=== PATIENT | female | born 1990 | race African-American/Black ===

== ENCOUNTER 2020-07-22 11:47 | Emergency (ER) | payer SELFPAY ==
--- NOTE | 2020-07-22 16:26 | ER ---
Nurse's Notes [facility] Name: Marimar Eid Age: 30 yrs Sex: Female : 1990 Arrival Date: 07/22/2020 Time: 11:50 Bed External Waiting Private MD: Diagnosis: Presentation: 07/22 11:57 Chief complaint: Patient states: Heavy vaginal bleeding that began <1 hour ago. LMP ss 06/27/20. Coronavirus screen: Client denies travel out of the [place] in the last 14 days. Ebola Screen: Patient denies exposure to infectious person. Patient denies travel to an Ebola-affected area in the 21 days before illness onset. Initial Sepsis Screen: Does the patient meet any 2 criteria? No. Patient's initial sepsis screen is negative. Does the patient have a suspected source of infection? No. Patient's initial sepsis screen is negative. Risk Assessment: Do you want to hurt yourself or someone else? Patient reports no desire to harm self or others. Onset of symptoms was July 22, 2020. 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 - Social history:: Smoking status: Patient reports the use of cigarette tobacco products, smokes one-half pack cigarettes per day. Assessment: 16:25 Reassessment: registration reports that patient left. Unknown reason. Vital Signs: 12:00 BP 115 / 74; Pulse 99; Resp 14; Temp 98.5(TE); Pulse Ox 99% on R/A; Weight 63.05 kg; ss Height 5 ft. 0 in. (152.40 cm); Pain 6/10; 12:00 Body Mass Index 27.15 (63.05 kg, 152.40 cm) ED Course: 11:50 Patient arrived in ED. ds1 11:58 Triage completed. ss 12:00 Arm band placed on right wrist. ss 15:43 Page, Camacho, PA is PHCP. cp 15:43 Camacho Walton MD is Attending Physician. cp 15:44 Nataly Momin, RN is Primary Nurse. ph Administered Medications: No medications were administered Outcome: 16:26 Eloped from waiting room. ss 16:26 Patient left the ED. ss Signatures: EnriquezDesire ds1 Georgiana Soni RN RN Nataly Momin RN RN Camacho Crockett PA PA cp Corrections: (The following items were deleted from the chart) 12:00 12:00 Social history: Smoking status: Patient denies any tobacco usage or history of. ssss
[2020-07-22 16:31] VITALS: BP 115/74; TEMP 98.5; O2SAT 99
== END 2020-07-22 16:26 | disposition left against medical advice (07) ==
LOC: ER 11:47
DX: Z02.9 Encounter for administrative examinations, unspecified (principal)
CPT/HCPCS: 99281

== ENCOUNTER 2020-11-10 23:00 | Emergency (ER) | payer OTHER, SELFPAY ==
[2020-11-10] MEDS ORDERED: HYDROCODONE/APAP 7.5/325 MG TAB ONE (23:51)
--- NOTE | 2020-11-11 00:07 | ER ---
Nurse's Notes [facility] Name: Marimar Eid Age: 30 yrs Sex: Female : 1990 Arrival Date: 11/10/2020 Time: 23:03 Bed 12 Private MD: Diagnosis: Sprain right shoulder Presentation: 11/10 23:09 Chief complaint: Patient states: we were horse playing and my right arm pop then it rr5 started to hurt. palpable pulse good capillary refill, limited range of motion noted. Coronavirus screen: Client denies travel out of the [place] in the last 14 days. At this time, the client does not indicate any symptoms associated with coronavirus-19. Ebola Screen: Patient negative for fever greater than or equal to 101.5 degrees Fahrenheit, and additional compatible Ebola Virus Disease symptoms Patient denies exposure to infectious person. Patient denies travel to an Ebola-affected area in the 21 days before illness onset. Initial Sepsis Screen: Does the patient meet any 2 criteria? No. Patient's initial sepsis screen is negative. Does the patient have a suspected source of infection? No. Patient's initial sepsis screen is negative. Risk Assessment: Do you want to hurt yourself or someone else? Patient reports no desire to harm self or others. Onset of symptoms was November 10, 2020. 23:09 Method Of Arrival: Ambulatory rr5 23:09 Acuity: RAMIRO 4 rr5 Triage Assessment: 11/11 00:15 Injury Description:. 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 - Social history:: Smoking status: Patient reports the use of cigarette tobacco products, 8 sticks/day, Patient/guardian denies using alcohol, street drugs. Screenin:15 Abuse screen: Denies threats or abuse. Denies injuries from another. Nutritional rr5 screening: No deficits noted. Tuberculosis screening: No symptoms or risk factors identified. Fall Risk None identified. Total Stephens Fall Scale indicates No Risk (0-24 pts). Assessment: 23:16 General: Appears in no apparent distress. uncomfortable, Behavior is calm, cooperative, rr5 appropriate for age. Pain: Complains of pain in right arm Pain currently is 6 out of 10 on a pain scale. Quality of pain is described as aching, Pain began suddenly, Is intermittent. Neuro: Level of Consciousness is awake, alert, obeys commands, Oriented to person, place, time. Cardiovascular: Capillary refill < 3 seconds Patient's skin is warm and dry. Respiratory: Airway is patent Respiratory effort is even, unlabored, Respiratory pattern is regular, symmetrical. GI: No signs and/or symptoms were reported involving the gastrointestinal system. : No signs and/or symptoms were reported regarding the genitourinary system. EENT: No signs and/or symptoms were reported regarding the EENT system. Derm: Skin is intact, is healthy with good turgor, Skin temperature is warm. Musculoskeletal: Capillary refill < 3 seconds, Reports pain in right arm. 11/11 00:14 Reassessment: Patient appears in no apparent distress at this time. Patient is alert, rr5 oriented x 3, equal unlabored respirations, skin warm/dry/pink. discharge instruction given and explained without complaints made. Vital Signs: 11/10 23:09 BP 110 / 83; Pulse 91; Resp 16; Temp 98.9; Pulse Ox 100% ; Weight 64.86 kg; Height 5 rr5 ft. 2 in. (157.48 cm); Pain 6/10; 11/11 00:14 BP 115 / 70; Pulse 85; Resp 19; Pulse Ox 98% ; rr5 11/10 23:09 Body Mass Index 26.15 (64.86 kg, 157.48 cm) rr5 ED Course: 11/10 23:03 Patient arrived in ED. cf2 23:06 Harsh Olea MD is Attending Physician. pkl 23:09 Scott Rothman, OMID is Primary Nurse. rr5 23:11 Triage completed. rr5 23:13 Arm band placed on right wrist. rr5 23:16 Patient has correct armband on for positive identification. Bed in low position. Call rr5 light in reach. 23:39 No provider procedures requiring assistance completed. Patient did not have IV access rr5 during this emergency room visit. 23:48 Humerus Right XRAY In Process Unspecified. EDMS 11/11 00:05 Shamir Shah MD is Referral Physician. pkl 00:14 Shoulder immobilizer applied on right shoulder. rr5 Administered Medications: 11/10 23:35 Drug: [place] (HYDROcodone-acetaminophen) (7.5 mg-325 mg) 1 tabs {Note: rass 0.} Route: rr5 PO; 11/11 00:19 Follow up: Response: No adverse reaction; RASS: Alert and Calm (0) rr5 Outcome: 00:06 Discharge ordered by MD. pkl 00:15 Discharged to home ambulatory. rr5 00:15 Condition: stable 00:15 Discharge instructions given to patient, Instructed on discharge instructions, follow up and referral plans. medication usage, Demonstrated understanding of instructions, follow-up care, medications, Prescriptions given X 1. 00:18 Patient left the ED. rr5 Signatures: Dispatcher [employer] EDMS Harsh Olea MD MD pkl Scott Rothman RN RN rr5 Mg Calle cf2 Corrections: (The following items were deleted from the chart) 11/10 23:18 23:09 Chief complaint: Patient states: I was horse playing and my right arm pop then it rr5 started to hurt. palpable pulse good capillary refill, limited range of motion noted rr5
--- NOTE | 2020-11-11 00:08 | EDPHYS ---
Physician Documentation [facility] Name: Marimar Eid Age: 30 yrs Sex: Female : 1990 Arrival Date: 11/10/2020 Time: 23:03 Bed 12 Private MD: ED Physician Harsh Olea HPI: 11/10 23:26 This 30 yrs old Black Female presents to ER via Ambulatory with complaints of Arm pkl Injury, Arm Pain. 23:26 The patient or guardian complains of decreased range of motion, injury, pain, that is pkl acute. The complaints affect the right arm. Context: resulted from twisting motion of the upper extremity. Onset: The symptoms/episode began/occurred just prior to arrival. Associated signs and symptoms: The patient has no apparent associated signs or symptoms. 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 - Social history:: Smoking status: Patient reports the use of cigarette tobacco products, 8 sticks/day, Patient/guardian denies using alcohol, street drugs. ROS: 23:26 Eyes: Negative for injury, pain, redness, and discharge, ENT: Negative for injury, pkl pain, and discharge, Neck: Negative for injury, pain, and swelling, Cardiovascular: Negative for chest pain, palpitations, and edema, Respiratory: Negative for shortness of breath, cough, wheezing, and pleuritic chest pain, Abdomen/GI: Negative for abdominal pain, nausea, vomiting, diarrhea, and constipation, Back: Negative for injury and pain, : Negative for injury, bleeding, discharge, and swelling, Skin: Negative for injury, rash, and discoloration, Neuro: Negative for headache, weakness, numbness, tingling, and seizure. 23:26 MS/extremity: Positive for decreased range of motion, pain, tenderness, of the right arm. Exam: 23:26 Head/Face: Normocephalic, atraumatic. Eyes: Pupils equal round and reactive to light, pkl extra-ocular motions intact. Lids and lashes normal. Conjunctiva and sclera are non-icteric and not injected. Cornea within normal limits. Periorbital areas with no swelling, redness, or edema. ENT: Nares patent. No nasal discharge, no septal abnormalities noted. Tympanic membranes are normal and external auditory canals are clear. Oropharynx with no redness, swelling, or masses, exudates, or evidence of obstruction, uvula midline. Mucous membranes moist. Neck: Trachea midline, no thyromegaly or masses palpated, and no cervical lymphadenopathy. Supple, full range of motion without nuchal rigidity, or vertebral point tenderness. No Meningismus. Chest/axilla: Normal chest wall appearance and motion. Nontender with no deformity. No lesions are appreciated. Cardiovascular: Regular rate and rhythm with a normal S1 and S2. No gallops, murmurs, or rubs. Normal PMI, no JVD. No pulse deficits. Respiratory: Lungs have equal breath sounds bilaterally, clear to auscultation and percussion. No rales, rhonchi or wheezes noted. No increased work of breathing, no retractions or nasal flaring. Abdomen/GI: Soft, non-tender, with normal bowel sounds. No distension or tympany. No guarding or rebound. No evidence of tenderness throughout. Back: No spinal tenderness. No costovertebral tenderness. Full range of motion. Skin: Warm, dry with normal turgor. Normal color with no rashes, no lesions, and no evidence of cellulitis. Neuro: Awake and alert, GCS 15, oriented to person, place, time, and situation. Cranial nerves II-XII grossly intact. Motor strength 5/5 in all extremities. Sensory grossly intact. Cerebellar exam normal. Normal gait. 23:26 Musculoskeletal/extremity: Extremities: grossly normal except: noted in the right arm: pain, swelling, decreased ROM, tenderness. Vital Signs: 23:09 BP 110 / 83; Pulse 91; Resp 16; Temp 98.9; Pulse Ox 100% ; Weight 64.86 kg; Height 5 rr5 ft. 2 in. (157.48 cm); Pain 6/10; 11/11 00:14 BP 115 / 70; Pulse 85; Resp 19; Pulse Ox 98% ; rr5 11/10 23:09 Body Mass Index 26.15 (64.86 kg, 157.48 cm) rr5 MDM: 11/10 23:07 Patient medically screened. pkl 11/11 00:01 Data reviewed: vital signs, nurses notes, radiologic studies, plain films. ED course: pkl Discussed X' rays result with patient. Advised to follow up with Dr. Shah in 1 to 2 days. Patient understood instructions. 11/10 23:24 Order name: Humerus Right XRAY pkl 11/11 00:08 Order name: Sling; Complete Time: 00:13 pkl Administered Medications: 11/10 23:35 Drug: [place] (HYDROcodone-acetaminophen) (7.5 mg-325 mg) 1 tabs {Note: rass 0.} Route: rr5 PO; 11/11 00:19 Follow up: Response: No adverse reaction; RASS: Alert and Calm (0) rr5 Disposition: 11/11/20 00:06 Discharged to Home. Impression: Sprain right shoulder. - Condition is Stable. - Prescriptions for Diclofenac Sodium 75 mg Oral Tablet, Delayed Release (E.C.) - take 1 tablet by ORAL route 2 times per day; 20 tablet. - Medication Reconciliation Form, Thank You Letter, Antibiotic Education, Prescription Opioid Use, Work release form form. - Follow up: Shamir Shah MD; When: 1 - 2 days; Reason: Re-evaluation by your physician. - Problem is new. - Symptoms are unchanged. Signatures: Dispatcher [employer] EDMS Harsh Olea MD MD pkScott Pierce RN RN rr5 Corrections: (The following items were deleted from the chart) 00:18 00:06 11/11/2020 00:06 Discharged to Home. Impression: Sprain right shoulder. Condition rr5 is Stable. Forms are Medication Reconciliation Form, Thank You Letter, Antibiotic Education, Prescription Opioid Use. Follow up: Shamir Shah; When: 1 - 2 days; Reason: Re-evaluation by your physician. Problem is new. Symptoms are unchanged. pkl
[2020-11-11 00:59] VITALS: TEMP 98.9
[2020-11-11 01:01] VITALS: BP 115/70; O2SAT 98
--- NOTE | 2020-11-11 08:20 | RAD REPORT ---
EXAM DESCRIPTION: RAD - Humerus Right - 11/10/2020 11:48 pm CLINICAL HISTORY: PAIN, trauma to the arm and shoulder COMPARISON: No comparisons FINDINGS: No fracture is identified. There is no dislocation or periosteal reaction noted. No foreig n body or other soft tissue abnormality. IMPRESSION: Negative right humerus examination.
== END 2020-11-11 00:18 | disposition home or self-care (01) ==
LOC: ER 23:00
DX: S43.401A Unspecified sprain of right shoulder joint, initial encounter (principal); X50.1XXA Overexertion from prolonged static or awkward postures, initial encounter; F17.210 Nicotine dependence, cigarettes, uncomplicated
CPT/HCPCS: 99284

== ENCOUNTER 2021-01-27 13:33 | Emergency (ER) | payer OTHER ==
[2021-01-27] MEDS ORDERED: ACETAMINOPHEN 325 MG TABLET ONE (15:11)
--- NOTE | 2021-01-27 16:44 | ER ---
Nurse's Notes [facility] Name: Marimar Eid Age: 30 yrs Sex: Female : 1990 Arrival Date: 01/27/2021 Time: 13:37 Bed DIS2 Private MD: Diagnosis: Acute upper respiratory infection, unspecified;Fever, unspecified Presentation: 01/27 14:34 Chief complaint: Patient states: dizziness, cough, sore throat, headache, and SOB that aa5 began yesterday. 14:34 Method Of Arrival: Ambulatory aa5 14:34 Coronavirus screen: cough unrelated to allergies, shortness of breath. Ebola Screen: aa5 Patient negative for fever greater than or equal to 101.5 degrees Fahrenheit, and additional compatible Ebola Virus Disease symptoms. Initial Sepsis Screen: Does the patient meet any 2 criteria? HR > 90 bpm. Does the patient have a suspected source of infection? No. Patient's initial sepsis screen is negative. Risk Assessment: Do you want to hurt yourself or someone else? Patient reports no desire to harm self or others. Onset of symptoms was January 2021. 14:34 Acuity: RAMIRO 4 aa5 Triage Assessment: 16:30 General: Appears in no apparent distress. Behavior is calm, cooperative. Respiratory: iw Reports cough that is Onset: The symptoms/episode began/occurred the patient has mild shortness of breath. 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 Flu vaccine is not up to date. - Social history:: Smoking status: Patient denies any tobacco usage or history of. - Family history:: not pertinent. Screenin:00 Abuse screen: Denies threats or abuse. Denies injuries from another. Nutritional iw screening: No deficits noted. Tuberculosis screening: No symptoms or risk factors identified. Fall Risk None identified. Assessment: 16:30 General: Appears in no apparent distress. comfortable, Behavior is calm, cooperative. iw Pain: Denies pain. Cardiovascular: Rhythm is regular. Respiratory: Airway is patent Respiratory effort is even, unlabored, Breath sounds are clear bilaterally. Vital Signs: 14:34 BP 109 / 63; Pulse 107; Resp 18 S; Temp 99.3(TE); Pulse Ox 100% on R/A; Weight 63.5 kg aa5 (R); Height 5 ft. 0 in. (152.40 cm) (R); Pain 8/10; 14:34 Body Mass Index 27.34 (63.50 kg, 152.40 cm) aa5 ED Course: 13:37 Patient arrived in ED. mr 14:35 Arm band placed on. aa5 14:38 Triage completed. aa5 15:45 Camacho Walton MD is Attending Physician. [facility] 16:55 Jillian Perez, RN is Primary Nurse. iw 16:55 No provider procedures requiring assistance completed. Patient did not have IV access iw during this emergency room visit. Administered Medications: 14:50 Drug: Tylenol 650 mg Route: PO; aa5 15:00 Follow up: Response: No adverse reaction iw 16:55 Drug: Zithromax (azithromycin) 500 mg Route: PO; iw 17:15 Follow up: Response: No adverse reaction iw Outcome: 16:43 Discharge ordered by . [facility] 16:45 Discharged to home ambulatory. iw 16:45 Condition: good 16:45 Discharge instructions given to patient, Instructed on discharge instructions, follow up and referral plans. Demonstrated understanding of instructions, follow-up care, medications. 16:55 Patient left the ED. iw Signatures: Camacho Walton MD MD cha Rivera, Mary mr Jillian Perez, RN OMID Janay Wells RN RN [facility]
--- NOTE | 2021-01-27 16:44 | EDPHYS ---
Physician Documentation [facility] Name: Marimar Eid Age: 30 yrs Sex: Female : 1990 Arrival Date: 01/27/2021 Time: 13:37 Bed DIS2 Private MD: MAYRA Physician Camacho Walton HPI: 01/27 16:06 This 30 yrs old Black Female presents to ER via Ambulatory with complaints of Shortness santosh Of Breath, Dizziness. 16:06 The patient has shortness of breath at rest, with light activity. Onset: The santosh symptoms/episode began/occurred 3 day(s) ago. Duration: The symptoms are continuous, and are unchanged since they started. The patient's shortness of breath is aggravated by coughing. Associated signs and symptoms: The patient has no apparent associated signs or symptoms. Severity of symptoms: At their worst the symptoms were mild just prior to arrival. The patient has not experienced similar symptoms in the past. 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 Flu vaccine is not up to date. - Social history:: Smoking status: Patient denies any tobacco usage or history of. - Family history:: not pertinent. ROS: 16:06 Constitutional: Negative for fever, chills, and weight loss, Eyes: Negative for injury, santosh pain, redness, and discharge, ENT: Negative for injury, pain, and discharge, Neck: Negative for injury, pain, and swelling, Cardiovascular: Negative for chest pain, palpitations, and edema, Abdomen/GI: Negative for abdominal pain, nausea, vomiting, diarrhea, and constipation, Back: Negative for injury and pain, : Negative for injury, bleeding, discharge, and swelling, MS/Extremity: Negative for injury and deformity, Skin: Negative for injury, rash, and discoloration, Neuro: Negative for headache, weakness, numbness, tingling, and seizure, Psych: Negative for depression, anxiety, suicide ideation, homicidal ideation, and hallucinations, Allergy/Immunology: Negative for hives, rash, and allergies, Endocrine: Negative for neck swelling, polydipsia, polyuria, polyphagia, and marked weight changes, Hematologic/Lymphatic: Negative for swollen nodes, abnormal bleeding, and unusual bruising. 16:06 Respiratory: Positive for cough, with no reported sputum, shortness of breath, at rest. Exam: 16:06 Constitutional: This is a well developed, well nourished patient who is awake, alert, santosh and in no acute distress. Head/Face: Normocephalic, atraumatic. Eyes: Pupils equal round and reactive to light, extra-ocular motions intact. Lids and lashes normal. Conjunctiva and sclera are non-icteric and not injected. Cornea within normal limits. Periorbital areas with no swelling, redness, or edema. ENT: Nares patent. No nasal discharge, no septal abnormalities noted. Tympanic membranes are normal and external auditory canals are clear. Oropharynx with no redness, swelling, or masses, exudates, or evidence of obstruction, uvula midline. Mucous membranes moist. Neck: Trachea midline, no thyromegaly or masses palpated, and no cervical lymphadenopathy. Supple, full range of motion without nuchal rigidity, or vertebral point tenderness. No Meningismus. Chest/axilla: Normal chest wall appearance and motion. Nontender with no deformity. No lesions are appreciated. Cardiovascular: Regular rate and rhythm with a normal S1 and S2. No gallops, murmurs, or rubs. Normal PMI, no JVD. No pulse deficits. Respiratory: Lungs have equal breath sounds bilaterally, clear to auscultation and percussion. No rales, rhonchi or wheezes noted. No increased work of breathing, no retractions or nasal flaring. Abdomen/GI: Soft, non-tender, with normal bowel sounds. No distension or tympany. No guarding or rebound. No evidence of tenderness throughout. Back: No spinal tenderness. No costovertebral tenderness. Full range of motion. Skin: Warm, dry with normal turgor. Normal color with no rashes, no lesions, and no evidence of cellulitis. MS/ Extremity: Pulses equal, no cyanosis. Neurovascular intact. Full, normal range of motion. Neuro: Awake and alert, GCS 15, oriented to person, place, time, and situation. Cranial nerves II-XII grossly intact. Motor strength 5/5 in all extremities. Sensory grossly intact. Cerebellar exam normal. Normal gait. Psych: Awake, alert, with orientation to person, place and time. Behavior, mood, and affect are within normal limits. 16:06 Musculoskeletal/extremity: DVT Exam: No signs of deep vein thrombosis. no pain, no swelling, no tenderness, negative Homans' sign noted on exam, no appreciated bluish discoloration, no erythema, no increased warmth. Vital Signs: 14:34 BP 109 / 63; Pulse 107; Resp 18 S; Temp 99.3(TE); Pulse Ox 100% on R/A; Weight 63.5 kg aa5 (R); Height 5 ft. 0 in. (152.40 cm) (R); Pain 8/10; 14:34 Body Mass Index 27.34 (63.50 kg, 152.40 cm) aa5 MDM: 15:45 Patient medically screened. [facility] 16:08 Data reviewed: vital signs, nurses notes, lab test result(s), Flu: negative. [facility] 01/27 14:39 Order name: Flu; Complete Time: 16:43 aa5 01/27 14:39 Order name: Strep; Complete Time: 16:43 aa5 01/27 16:20 Order name: Throat Culture EDMS 01/27 16:35 Order name: SARS-COV-2 RT PCR; Complete Time: 16:43 EDMS Administered Medications: 14:50 Drug: Tylenol 650 mg Route: PO; aa5 15:00 Follow up: Response: No adverse reaction iw 16:55 Drug: Zithromax (azithromycin) 500 mg Route: PO; iw 17:15 Follow up: Response: No adverse reaction iw Disposition Summary: 01/27/21 16:43 Discharge Ordered Location: Home santosh Problem: new santosh Symptoms: have improved santosh Condition: Stable santosh Diagnosis - Acute upper respiratory infection, unspecified santosh - Fever, unspecified santosh Followup: santosh - With: Private Physician - When: 2 - 3 days - Reason: Recheck today's complaints, Continuance of care, Re-evaluation by your physician Discharge Instructions: - Discharge Summary Sheet santosh - Fever, Adult santosh - Upper Respiratory Infection, Adult santosh - Cool Mist Vaporizer santosh - Upper Respiratory Infection, Adult, [id number] santosh - Cough, Adult, [id number] santosh - Viral Respiratory Infection, [id number] santosh - Aspirin and Your Heart santosh - Fever, Adult, [id number] [facility] Forms: - Medication Reconciliation Form santosh - Thank You Letter santosh - Antibiotic Education santosh - Prescription Opioid Use [facility] Prescriptions: - Zithromax Z-Leighton 250 mg Oral Tablet - take 1 tablet by ORAL route as directed for 5 days Day 1 - take two (2) tablets santosh one time. Day 2, 3, 4 , 5 take one (1) tablet once daily.; 6 tablet; Refills: 0, Product Selection Permitted - Medrol (Leighton) 4 mg Oral Tablets, Dose Pack - take 1 tablet by ORAL route as directed - follow package instructions; 1 santosh packet; Refills: 0, Product Selection Permitted Signatures: Dispatcher [employer] EDCamacho Monsivais MD MD cha Williams, Irene, RN RN iw Calderon, Audri, RN RN aa5 Corrections: (The following items were deleted from the chart) 15:42 14:39 CORONAVIRUS+BRZ ordered. EDID EDMS
[2021-01-27 17:00] VITALS: BP 109/63; TEMP 99.3; O2SAT 100
[2021-01-27] MEDS ORDERED: AZITHROMYCIN 250 MG TAB ONE (17:14)
== END 2021-01-27 16:55 | disposition home or self-care (01) ==
LOC: ER 13:33
DX: J06.9 Acute upper respiratory infection, unspecified (principal); Z20.822 Contact with and (suspected) exposure to COVID-19; I10 Essential (primary) hypertension
CPT/HCPCS: 87070; 87081; 87804 ×2; U0003; 99283

== ENCOUNTER 2021-02-03 17:05 | Emergency (ER) | payer OTHER ==
--- NOTE | 2021-02-03 20:08 | ER ---
Nurse's Notes [facility] Name: Marimra Eid Age: 30 yrs Sex: Female : 1990 Arrival Date: 02/03/2021 Time: 18:02 Bed DIS1 Private MD: Diagnosis: SARS-associated coronavirus as the cause of diseases classified elsewhere Presentation: 02/03 19:22 Chief complaint: Patient states: Pt stated, " I was just here on 01/26 and was swabbed kg for COVID and it was negative they diagnosed me with URI but now I can't taste or smell anything and I'm having sharp chest pain when I breath.". Coronavirus screen: Client denies travel out of the [place] in the last 14 days. At this time, unable to obtain information related to travel outside the [place] Client presents with at least one sign or symptom that may indicate coronavirus-19. Standard/surgical mask placed on the client. Provider contacted for isolation considerations. The client reports previous COVID testing was negative. Date of collection: January 26, 2021. Ebola Screen: Patient negative for fever greater than or equal to 101.5 degrees Fahrenheit, and additional compatible Ebola Virus Disease symptoms Patient denies exposure to infectious person. Patient denies travel to an Ebola-affected area in the 21 days before illness onset. No symptoms or risks identified at this time. Initial Sepsis Screen: Does the patient meet any 2 criteria? No. Patient's initial sepsis screen is negative. Does the patient have a suspected source of infection? No. Patient's initial sepsis screen is negative. Risk Assessment: Do you want to hurt yourself or someone else? Patient reports no desire to harm self or others. Onset of symptoms was February 02, 2021. 19:22 Method Of Arrival: Ambulatory kg 19:22 Acuity: RAMIRO 4 kg Triage Assessment: 19:27 General: Appears in no apparent distress. Behavior is calm, cooperative, appropriate kg for age, quiet. Pain: Complains of pain in chest Pain currently is 6 out of 10 on a pain scale. at worst was 6 out of 10 on a pain scale. level that patient reports is acceptable is 3 out of 10 on a pain scale. Quality of pain is described as sharp. 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 - Social history:: Smoking status: Patient denies any tobacco usage or history of. Screenin:29 Abuse screen: Denies threats or abuse. Denies injuries from another. Nutritional kg screening: No deficits noted. Tuberculosis screening: No symptoms or risk factors identified. Fall Risk None identified. Assessment: 20:17 Reassessment: pt seen by this RN at discharge pt is A\\T\\O x 4, resp unlabored pt bb verbalized understanding of and agrees to plan of care discharge instructions given pt ambulated with steady gait to exit. Vital Signs: 19:22 BP 112 / 77; Pulse 96; Resp 20; Temp 98.7(O); Pulse Ox 100% on R/A; Weight 63.5 kg; kg Height 5 ft. 0 in. (152.40 cm) (R); Pain 7/10; 19:22 Body Mass Index 27.34 (63.50 kg, 152.40 cm) kg ED Course: 18:02 Patient arrived in ED. ds1 19:27 Triage completed. kg 19:27 Arm band placed on right wrist. kg 19:29 Patient has correct armband on for positive identification. kg 19:29 No provider procedures requiring assistance completed. kg 19:44 XRAY Chest Pa And Lat (2 Views) In Process Unspecified. MAYRAPR 19:56 Camacho Walton MD is Attending Physician. [facility] 19:56 Brody Manning PA is PHCP. jrEmily 20:17 Patient did not have IV access during this emergency room visit. bb Administered Medications: No medications were administered Outcome: 20:07 Discharge ordered by . jrEmily 20:17 Discharged to home ambulatory. bb 20:17 Condition: stable 20:17 Discharge instructions given to patient, Instructed on discharge instructions, follow up and referral plans. Demonstrated understanding of instructions, follow-up care. 20:19 Patient left the ED. bb Signatures: Dispatcher [employer] Camacho Murillo MD MD cha Sanford, Demi ds1 Pari Reyes, RN RN bb Brody Manning PA PA jr8 Renee Brooks, RN RN kg
--- NOTE | 2021-02-03 20:08 | EDPHYS ---
Physician Documentation [facility] Name: Marimar Eid Age: 30 yrs Sex: Female : 1990 Arrival Date: 02/03/2021 Time: 18:02 Bed DIS1 Private MD: ED Physician Camacho Walton HPI: 02/03 20:05 This 30 yrs old Black Female presents to ER via Ambulatory with complaints of Loss jr8 Taste/Smell, Painful Cough. 20:05 This is a 30-year-old female patient that presented to the emergency room for mild jr8 cough and loss of taste and smell that started last night. Stated that she had cough about 1 week ago and was tested and was negative at that time. Had normal taste when she went to bed last night woke up with decreased to no taste and smell this morning.. Severity of symptoms: At their worst the symptoms were mild in the emergency department the symptoms are unchanged. The patient has not experienced similar symptoms in the past. The patient has not recently seen a physician. 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 - Social history:: Smoking status: Patient denies any tobacco usage or history of. ROS: 20:05 Eyes: Negative for injury, pain, redness, and discharge, Neck: Negative for injury, jr8 pain, and swelling, Cardiovascular: Negative for chest pain, palpitations, and edema, Abdomen/GI: Negative for abdominal pain, nausea, vomiting, diarrhea, and constipation, Back: Negative for injury and pain, MS/Extremity: Negative for injury and deformity, Skin: Negative for injury, rash, and discoloration, Neuro: Negative for headache, weakness, numbness, tingling, and seizure. 20:05 ENT: Positive for Anosmia, Negative for drainage from ear(s), ear pain, rhinorrhea, sinus congestion, difficulty swallowing, difficulty handling secretions, hoarseness. 20:05 Respiratory: Positive for cough, Negative for dyspnea on exertion, shortness of breath, sputum production, wheezing. Exam: 20:05 Constitutional: This is a well developed, well nourished patient who is awake, alert, jr8 and in no acute distress. Eyes: Pupils equal round and reactive to light, extra-ocular motions intact. Lids and lashes normal. Conjunctiva and sclera are non-icteric and not injected. Cornea within normal limits. Periorbital areas with no swelling, redness, or edema. ENT: Nares patent. No nasal discharge, no septal abnormalities noted. Tympanic membranes are normal and external auditory canals are clear. Oropharynx with no redness, swelling, or masses, exudates, or evidence of obstruction, uvula midline. Mucous membranes moist. Neck: Trachea midline, no thyromegaly or masses palpated, and no cervical lymphadenopathy. Supple, full range of motion without nuchal rigidity, or vertebral point tenderness. No Meningismus. Cardiovascular: Regular rate and rhythm with a normal S1 and S2. No gallops, murmurs, or rubs. Normal PMI, no JVD. No pulse deficits. Respiratory: Lungs have equal breath sounds bilaterally, clear to auscultation and percussion. No rales, rhonchi or wheezes noted. No increased work of breathing, no retractions or nasal flaring. Abdomen/GI: Soft, non-tender, with normal bowel sounds. No distension or tympany. No guarding or rebound. No evidence of tenderness throughout. Skin: Warm, dry with normal turgor. Normal color with no rashes, no lesions, and no evidence of cellulitis. MS/ Extremity: Pulses equal, no cyanosis. Neurovascular intact. Full, normal range of motion. Neuro: Awake and alert, GCS 15, oriented to person, place, time, and situation. Cranial nerves II-XII grossly intact. Motor strength 5/5 in all extremities. Sensory grossly intact. Vital Signs: 19:22 BP 112 / 77; Pulse 96; Resp 20; Temp 98.7(O); Pulse Ox 100% on R/A; Weight 63.5 kg; kg Height 5 ft. 0 in. (152.40 cm) (R); Pain 7/10; 19:22 Body Mass Index 27.34 (63.50 kg, 152.40 cm) kg MDM: 19:56 Patient medically screened. santosh 20:05 Data reviewed: vital signs, nurses notes, lab test result(s), and as a result, I will jr8 discharge patient. Data interpreted: Pulse oximetry: on room air is 100 %. Interpretation: normal. Counseling: I had a detailed discussion with the patient and/or guardian regarding: the historical points, exam findings, and any diagnostic results supporting the discharge/admit diagnosis, lab results, the need for outpatient follow up, a family practitioner, to return to the emergency department if symptoms worsen or persist or if there are any questions or concerns that arise at home. 02/03 20:03 Order name: COVID-19 : Document "Date of Symptom Onset" if Symptomatic. jr8 02/03 19:30 Order name: XRAY Chest Pa And Lat (2 Views); Complete Time: 20:45 kg Administered Medications: No medications were administered Disposition: 02/04 07:53 Co-signature as Attending Physician, Camacho Walton MD I agree with the assessment and [facility] plan of care. Disposition Summary: 02/03/21 20:07 Discharge Ordered Location: Home jr8 Problem: new jr8 Symptoms: have improved jr8 Condition: Stable jr8 Diagnosis - SARS-associated coronavirus as the cause of diseases classified elsewhere jr8 Followup: jr8 - With: Private Physician - When: As needed - Reason: Recheck today's complaints, Continuance of care, Re-evaluation by your physician Discharge Instructions: - Discharge Summary Sheet jr8 - COVID-19 jr8 Forms: - Medication Reconciliation Form jr8 - Thank You Letter jr8 - Antibiotic Education jr8 - Prescription Opioid Use jr8 Signatures: Dispatcher [employer] EDCamacho Monsivais MD MD cha Roszak, Josh, PA PA jr8 Renee Brooks, RN RN kg
--- NOTE | 2021-02-03 20:10 | RAD REPORT ---
EXAM DESCRIPTION: RAD - Chest Pa And Lat (2 Views) - 02/03/2021 7:44 pm CLINICAL HISTORY: PAIN Chest pain. COMPARISON: No comparisons FINDINGS: The lungs are clear. The heart is normal in size. No displaced fractures. Mild thoracic d extroscoliosis. IMPRESSION: No acute or concerning finding suspected.
[2021-02-03 20:25] VITALS: BP 112/77; TEMP 98.7; O2SAT 100
== END 2021-02-03 20:19 | disposition home or self-care (01) ==
LOC: ER 17:05
DX: U07.1 COVID-19 (principal)
CPT/HCPCS: 71046; 99283; U0003

== ENCOUNTER 2021-04-11 12:59 | Emergency (ER) | payer OTHER ==
[2021-04-11] MEDS ORDERED: KETOROLAC 30 MG/ML INJ ONE (14:13)
--- NOTE | 2021-04-11 14:31 | EDPHYS ---
Physician Documentation [facility] Name: Marimar Eid Age: 30 yrs Sex: Female : 1990 Arrival Date: 04/11/2021 Time: 13:02 Bed 23 Private MD: MAYRA Physician Camacho Walton HPI: 04/11 13:15 This 30 yrs old Black Female presents to ER via Ambulatory with complaints of Facial jmm Swelling, Mouth Problem. 13:15 The patient presents with pain, swelling. Onset: The symptoms/episode began/occurred jmm gradually. Duration: The symptoms are continuous. Modifying factors: The symptoms are alleviated by nothing, the symptoms are aggravated by nothing. Associated signs and symptoms: Pertinent positives: swelling, Pertinent negatives: fever. Historical: - Allergies: 13:10 No Known Allergies; aa5 - PMHx: 13:09 Hypertensive disorder; aa5 - PSHx: 13:09 section; Cholecystectomy; D\T\C; aa5 - Immunization history:: Adult Immunizations up to date. - Social history:: Smoking status: Patient/guardian denies using tobacco. ROS: 13:15 Constitutional: Negative for fever, chills, and weight loss, Cardiovascular: Negative jmm for chest pain, palpitations, and edema, Respiratory: Negative for shortness of breath, cough, wheezing, and pleuritic chest pain. 13:15 ENT: Positive for dental pain. 13:15 All other systems are negative. Exam: 13:15 Constitutional: This is a well developed, well nourished patient who is awake, alert, jmm and in no acute distress. Head/Face: atraumatic. Eyes: EOMI, no conjunctival erythema appreciated ENT: Moist Mucus Membranes Neck: Trachea midline, Supple Chest/axilla: Normal chest wall appearance and motion. Cardiovascular: Regular rate and rhythm. No edema appreciated Respiratory: Normal respirations, no respiratory distress appreciated Abdomen/GI: Non distended, soft Back: Normal ROM Skin: General appearance color normal MS/ Extremity: Moves all extremities, no obvious deformities appreciated, no edema noted to the lower extremities Neuro: Awake and alert, normal gait Psych: Behavior is normal, Mood is normal, Patient is cooperative and pleasant 13:15 ENT: Posterior pharynx: is normal, Dental exam: pain, that is moderate, specifically in the upper right third molar (#1), upper right second molar (#2), upper left second molar (#15) and upper left third molar (#16). Vital Signs: 13:10 BP 128 / 71; Pulse 108; Resp 18 S; Temp 98.7(O); Pulse Ox 100% on R/A; Weight 65.77 kg aa5 (R); Height 5 ft. 1 in. (154.94 cm) (R); 15:21 Pulse 75; Resp 18; Pulse Ox 100% on R/A; aj1 13:10 Body Mass Index 27.40 (65.77 kg, 154.94 cm) aa5 MDM: 13:15 Patient medically screened. [facility] 14:30 Data reviewed: vital signs, nurses notes. Counseling: I had a detailed discussion with grabiel the patient and/or guardian regarding: the historical points, exam findings, and any diagnostic results supporting the discharge/admit diagnosis, the need for outpatient follow up, to return to the emergency department if symptoms worsen or persist or if there are any questions or concerns that arise at home. Administered Medications: 13:52 Drug: Ketorolac 30 mg Route: IM; Site: left deltoid; aj1 15:21 Follow up: Response: No adverse reaction aj1 15:00 Drug: Marcaine (bupivacaine) (0.5 %) 10 ml {Note: Administered by PA. Marino} aj1 Volume: 10 ml; Route: Infiltration; 15:21 Follow up: Response: No adverse reaction aj1 Disposition Summary: 04/11/21 14:31 Discharge Ordered Location: Home [facility] Condition: Stable [facility] Diagnosis - Dental Pain [facility] Followup: [facility] - With: Kaiden Peterson DDS - When: 2 - 3 days - Reason: Recheck today's complaints, Continuance of care, Re-evaluation by your physician Discharge Instructions: - Discharge Summary Sheet [facility] - Dental Pain [facility] Forms: - Medication Reconciliation Form [facility] - Thank You Letter [facility] - Antibiotic Education [facility] - Prescription Opioid Use [facility] Prescriptions: - Amoxicillin 875 mg Oral Tablet - take 1 tablet by ORAL route every 12 hours for 10 days; 20 tablet; Refills: 0, [facility] Product Selection Permitted - Ultracet 37.5-325 mg Oral Tablet - take 1 tablet by ORAL route every 6 hours - for up to 5 days; do not exceed 8 jmm tablets per day.; 12 tablet; Refills: 0, Product Selection Permitted Addendum: 04/12/2021 16:16 Co-signature as Attending Physician, Camacho Walton MD I agree with the assessment and c claudio plan of care. Signatures: Kasia Moon, RN RN aj1 Camacho Walton MD MD cha Mickail, Joel, PA PA jmm Calderon, Audri, RN RN aa5
--- NOTE | 2021-04-11 14:31 | ER ---
Nurse's Notes [facility] Name: Marimar Eid Age: 30 yrs Sex: Female : 1990 Arrival Date: 04/11/2021 Time: 13:02 Bed 23 Private MD: Diagnosis: Dental Pain Presentation: 04/11 13:10 Chief complaint: Patient states: "both of my top wisdom teeth are coming in and I am aa5 hurting, I have a headache". Coronavirus screen: At this time, the client does not indicate any symptoms associated with coronavirus-19. Ebola Screen: Patient negative for fever greater than or equal to 101.5 degrees Fahrenheit, and additional compatible Ebola Virus Disease symptoms. Initial Sepsis Screen: Does the patient meet any 2 criteria? HR > 90 bpm. Does the patient have a suspected source of infection? No. Patient's initial sepsis screen is negative. Risk Assessment: Do you want to hurt yourself or someone else? Patient reports no desire to harm self or others. Onset of symptoms was March 2021. 13:10 Method Of Arrival: Ambulatory aa5 13:10 Acuity: RAMIRO 5 aa5 Historical: - Allergies: 13:10 No Known Allergies; aa5 - PMHx: 13:09 Hypertensive disorder; aa5 - PSHx: 13:09 section; Cholecystectomy; D\\T\\C; aa5 - Immunization history:: Adult Immunizations up to date. - Social history:: Smoking status: Patient/guardian denies using tobacco. Screenin:45 Abuse screen: Denies threats or abuse. Denies injuries from another. Nutritional aj1 screening: No deficits noted. Tuberculosis screening: No symptoms or risk factors identified. 15:22 Fall Risk None identified. aj1 Assessment: 13:45 General: Appears in no apparent distress. uncomfortable, Behavior is calm, cooperative, aj1 appropriate for age. Pain: Complains of pain in mouth Pain does not radiate. Neuro: Level of Consciousness is awake, alert, obeys commands, Oriented to person, place, time, situation. Cardiovascular: Patient's skin is warm and dry. Respiratory: Airway is patent Respiratory effort is even, unlabored, Respiratory pattern is regular, symmetrical. GI: No signs and/or symptoms were reported involving the gastrointestinal system. : No signs and/or symptoms were reported regarding the genitourinary system. EENT: No signs and/or symptoms were reported regarding the EENT system. Derm: No signs and/or symptoms reported regarding the dermatologic system. Skin is pink, warm \\T\\ dry. normal. Musculoskeletal: No signs and/or symptoms reported regarding the musculoskeletal system. Circulation, motion, and sensation intact. 14:45 Reassessment: Patient appears in no apparent distress at this time. No changes from 1 previously documented assessment. Patient and/or family updated on plan of care and expected duration. Pain level reassessed. Patient is alert, oriented x 3, equal unlabored respirations, skin warm/dry/pink. 15:21 Reassessment: Patient appears in no apparent distress at this time. No changes from aj1 previously documented assessment. Patient and/or family updated on plan of care and expected duration. Pain level reassessed. Patient is alert, oriented x 3, equal unlabored respirations, skin warm/dry/pink. Vital Signs: 13:10 BP 128 / 71; Pulse 108; Resp 18 S; Temp 98.7(O); Pulse Ox 100% on R/A; Weight 65.77 kg aa5 (R); Height 5 ft. 1 in. (154.94 cm) (R); 15:21 Pulse 75; Resp 18; Pulse Ox 100% on R/A; aj1 13:10 Body Mass Index 27.40 (65.77 kg, 154.94 cm) aa5 ED Course: 13:02 Patient arrived in ED. am2 13:09 Arm band placed on. aa5 13:11 Triage completed. aa 13:12 Dave Vargas PA is PHCP. [facility] 13:12 Camacho Walton MD is Attending Physician. [facility] 13:45 Kasia Moon, RN is Primary Nurse. aj1 13:45 Patient has correct armband on for positive identification. Bed in low position. Call [facility] light in reach. 13:45 No provider procedures requiring assistance completed. aj1 14:31 Kaiden Peterson DDS is Referral Physician. jm 15:22 Patient did not have IV access during this emergency room visit. aj1 Administered Medications: 13:52 Drug: Ketorolac 30 mg Route: IM; Site: left deltoid; aj1 15:21 Follow up: Response: No adverse reaction aj1 15:00 Drug: Marcaine (bupivacaine) (0.5 %) 10 ml {Note: Administered by PA. Marino} aj1 Volume: 10 ml; Route: Infiltration; 15:21 Follow up: Response: No adverse reaction aj1 Outcome: 14:31 Discharge ordered by MD. [place] 15:22 Discharged to home ambulatory. aj1 15:22 Condition: good 15:22 Discharge instructions given to patient, Instructed on discharge instructions, follow up and referral plans. medication usage, Demonstrated understanding of instructions, follow-up care, medications, Prescriptions given X 2. 15:23 Patient left the ED. aj1 Signatures: Kasia Moon RN RN aj1 Dave Vargas PA PA jmm Calderon, Audri RN RN aa5 Tiffanie Eaton am2 Corrections: (The following items were deleted from the chart) 13:12 13:10 Ebola Screen: Patient negative for fever greater than or equal to 101.5 degrees aa5 Fahrenheit, and additional compatible Ebola Virus Disease symptoms aa5 13:12 13:10 Initial Sepsis Screen: Does the patient meet any 2 criteria? No. Patient's aa5 initial sepsis screen is negative. Does the patient have a suspected source of infection? No. Patient's initial sepsis screen is negative. aa5 15:22 15:22 Discharge instructions given to patient, Instructed on discharge instructions, aj1 follow up and referral plans. medication usage, Demonstrated understanding of instructions, follow-up care, medications, Prescriptions given X 1, aj1
[2021-04-11 15:27] VITALS: BP 128/71; TEMP 98.7; O2SAT 100
== END 2021-04-11 15:23 | disposition home or self-care (01) ==
LOC: ER 12:59
DX: K08.89 Other specified disorders of teeth and supporting structures (principal); I10 Essential (primary) hypertension
CPT/HCPCS: 96372; 99283

== ENCOUNTER 2021-11-14 17:08 | Emergency (ER) | payer OTHER ==
--- NOTE | 2021-11-14 18:06 | ER ---
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 Coronavirus screen: At this time, the client does not indicate any symptoms associated with coronavirus-19. Ebola Screen: Patient negative for fever greater than or equal to 101.5 degrees Fahrenheit, and additional compatible Ebola Virus Disease symptoms Patient denies exposure to infectious person. Patient denies travel to an Ebola-affected area in the 21 days before illness onset. No symptoms or risks identified at this time. Initial Sepsis Screen: Does the patient meet any 2 criteria? No. Patient's initial sepsis screen is negative. Does the patient have a suspected source of infection? No. Patient's initial sepsis screen is negative. Risk Assessment: Do you want to hurt yourself or someone else? Patient reports no desire to harm self or others. Onset of symptoms was November 14, 2021. 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 iw 17:37 Reassessment: I advised pt to seek medical attention if she is having uncontrolled pain iw and/or heavy bleeding , pt verbalizes understanding, will follow up with her OB on Tuesday. Vital Signs: 17:26 BP 121 / 81; Pulse 104; Resp 16; Temp 98.3; Pulse Ox 100% on R/A; Pain 5/10; iw ED Course: 17:11 Patient arrived in ED. ds1 17:27 Triage completed. iw 17:28 Arm band placed on. iw Administered Medications: No medications were administered Outcome: 18:06 Patient left the ED. iw Signatures: Desire Enriquez ds1 Jillian Perez, RN RN iw
[2021-11-14 18:13] VITALS: BP 121/81; TEMP 98.3; O2SAT 100
== END 2021-11-14 18:06 | disposition left against medical advice (07) ==
LOC: ER 17:08
DX: Z53.21 Procedure and treatment not carried out due to patient leaving prior to being seen by health care provider (principal)
CPT/HCPCS: 99281

== ENCOUNTER 2022-05-14 22:34 | Emergency (ER) | payer OTHER ==
--- OUTSIDE RECORDS SUMMARY | 2022-05-14 22:38 | XMS REPORT | Continuity of Care Document ---
:1990 Author Organization [facility] t Address [address] [place] [address] Care Team Providers Name Role Phone Gino GONZALEZ, Dylon Primary Care Physician [phone] DYLON CHRISTIAN Attending Clinician Unavailable DYLON CHRISTIAN Attending Clinician Unavailable Pob, Adc Lab Main Attending Clinician Unavailable Dina ANNE, Merna Attending Clinician Unavailable Doctor Unassigned, [place] Attending Clinician Unavailable Payers Payer Name Policy Type Policy Number Effective Date Expiration Date S ource Problems Condition Condition Condition Status Onset Resolution Last Treating Co mments Source Name Details Category Date Date Treatment Clinician Date Mixed Mixed Disease Active 2021-06 Univers anxiety anxiety 1-10 ity of and and 00:00: [place] depressive depressive 00 Me dical disorder disorder Branch Confirm 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 1-10 [place] 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 Me dical 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, e, ultrasound ultrasound Allergies, Adverse Reactions, Alerts Allergy Allergy Status Severity Reaction(s) Onset Inactive Treating Comm ents Source Name Type Date Date Clinician NO KNOWN Drug Active Univers ALLERGIE Class ity of S [facility] Social History Social Habit Start Date Stop Date Quantity Comments Source ASSERTION 2022-03-14 University of 00:00:00 [facility] Exposure to 2022-05-01 2022-05-11 Not sure [facility] SARS-CoV-2 (event) 00:00:00 09:23:00 [facility] Alcohol intake 2022-05-11 2022-05-11 Ex-drinker [facility] 00:00:00 00:00:00 (finding) [facility] Cigarettes smoked 2022-05-06 2022-05-06 [facility] ity of current (pack per 00:00:00 00:00:00 [facility] ) - Reported Branch Cigarette 2022-05-06 2022-05-06 University of pack-years 00:00:00 00:00:00 [facility] Tobacco use and 2022-05-06 2022-05-06 Smokeless Universit y of exposure 00:00:00 00:00:00 tobacco non-user [facility] History of tobacco 2022-05-03 Cigarette Smoker University of use 00:00:00 [facility] Sex Assigned At [birth year] Universit y of 00:00:00 00:00:00 [facility] Smoking Status Start Date Stop Date Source Tobacco smoking University [facility] xa consumption unknown Medical Bran ch Ex-smoker 2022-05-06 00:00:00 2022-05-06 [place] f [place] 00:00:00 [facility] Medications Ordered Filled Start Stop Current Ordering Indication Dosage Frequency Signature Comments Components Source Medication Medication Date Date Medication? Clinician (SIG) Name Name metroNIDAZO 2021-06- Yes [id number] 500mg Take 1 Univers LE 500 mg 07-07 tablet by ity of tablet 00:00: 05:59 mouth [place] 00 :00 every 12 Medical (twelve) Branch hours for 7 days. metroNIDAZO 2021-06- Yes [id number] 500mg Take 1 Univers LE 500 mg 07-07 tablet by ity of tablet 00:00: 05:59 mouth [place] 00 :00 every 12 Medical (twelve) Branch hours for 7 days. metroNIDAZO 2021-06- Yes [id number] 500mg Take 1 Univers LE 500 mg 07-07 tablet by ity of tablet 00:00: 05:59 mouth [place] 00 :00 every 12 Medical (twelve) Branch hours for 7 days. metroNIDAZO 2021-06- Yes [id number] 500mg Take 1 Univers LE 500 mg 07-07 tablet by ity of tablet 00:00: 05:59 mouth [place] 00 :00 every 12 Medical (twelve) Branch hours for 7 days. metroNIDAZO 2021-06- Yes [id number] 500mg Take 1 Univers LE 500 mg 07-07 tablet by ity of tablet 00:00: 05:59 mouth [place] 00 :00 every 12 Medical (twelve) Branch hours for 7 days. metroNIDAZO 2021-06- Yes [id number] 500mg Take 1 Univers LE 500 mg 07-07 tablet by ity of tablet 00:00: 05:59 mouth [place] 00 :00 every 12 Medical (twelve) Branch hours for 7 days. metroNIDAZO 2021-06- Yes [id number] 500mg Take 1 Univers LE 500 mg 07-07 tablet by ity of tablet 00:00: 05:59 mouth [place] 00 :00 every 12 Medical (twelve) Branch hours for 7 days. 2021-06 Yes Take by Univer s 25/iron 1-10 mouth. ity of fum/folic/d 08:57: [facility] 02 Medical (-1 Branch ORAL) 2021-06 Yes Take by Univer s 25/iron 1-10 mouth. ity of fum/folic/d 08:57: [facility] 02 Medical (-1 Branch ORAL) 2021-06 Yes Take by Univer s 25/iron 1-10 mouth. ity of fum/folic/d 08:57: [facility] 02 Medical (-1 Branch ORAL) 2021-06 Yes Take by Univer s 25/iron 1-10 mouth. ity of fum/folic/d 08:57: [place] claudio 02 Medical (-1 Branch ORAL) 2021-06 Yes Take by Univer s 25/iron 1-10 mouth. ity of fum/folic/d 08:57: [place] claudio 02 Medical (-1 Branch ORAL) 2021-06 Yes Take by Univer s 25/iron 1-10 mouth. ity of fum/folic/d 08:57: [place] claudio 02 Medical (-1 Branch ORAL) 2021-06 Yes Take by Univer s 25/iron 1-10 mouth. ity of fum/folic/d 08:57: [place] [address] Medical (-1 Branch ORAL) 2021-06 Yes Take by Univer s 25/iron 1-10 mouth. ity of fum/folic/d 08:57: [place] [address] Medical (-1 Branch ORAL) 2021-06 Yes [id number] 1{tbl} Take 1 Univers vit 1-10 tablet by ity of no.130-iron 00:00: [place] -folic 00 the Medical ( morning. Branch VITAMIN) 2021-06 Yes [id number] 1{tbl} Take 1 Univers vit 1-10 tablet by ity of no.130-iron 00:00: [place] -folic 00 the Medical ( morning. Branch VITAMIN) 2021-06 Yes [id number] 1{tbl} Take 1 Univers vit 1-10 tablet by ity of no.130-iron 00:00: [place] -folic 00 the Medical ( morning. Branch VITAMIN) 2021-06 Yes [id number] 1{tbl} Take 1 Univers vit 1-10 tablet by ity of no.130-iron 00:00: [place] -folic 00 the Medical ( morning. Branch VITAMIN) 2021-06 Yes [id number] 1{tbl} Take 1 Univers vit 1-10 tablet by ity of no.130-iron 00:00: [place] -folic 00 the Medical ( morning. Branch VITAMIN) 2021-06 Yes [id number] 1{tbl} Take 1 Univers vit 1-10 tablet by ity of no.130-iron 00:00: [place] -folic 00 the Medical ( morning. Branch VITAMIN) 2021-06 Yes [id number] 1{tbl} Take 1 Univers vit 1-10 tablet by ity of no.130-iron 00:00: [place] -folic 00 the Medical ( morning. Branch VITAMIN) 2021-06 Yes [id number] 1{tbl} Take 1 Univers vit 1-10 tablet by ity of no.130-iron 00:00: [place]folic 00 the Medical ( morning. Branch VITAMIN) 2021-06- No [id number] 1{tbl} Take 1 Univers vit 1-10 11-10 tablet by ity of no.130-iron 00:00: 00:00 [place] -folic 00 :00 the Medical ( morning. Branch VITAMIN) Vital Signs Vital Name Observation Time Observation Value Comments Source Systolic blood 2022-05-06 14:55:00 96 mm[Hg] Univer sity of pressure [facility] Diastolic blood 2022-05-06 14:55:00 44 mm[Hg] Unive [facility] Heart rate 2022-05-06 14:55:00 100 /min [facility] Body temperature 2022-05-06 14:55:00 37.11 Antonette [facility] Respiratory rate 2022-05-06 14:55:00 16 /min [facility] Body height 2022-05-06 14:55:00 165.1 cm [facility] Body weight 2022-05-06 14:55:00 76.975 kg [facility] BMI 2022-05-06 14:55:00 28.24 kg/m2 [facility] Oxygen saturation in 2022-05-06 14:55:00 97 /min [facility] blood by [facility] Pulse oximetry Branch Procedures Procedure Date / Time Performing Clinician Source Performed US FIRST 2022-05-13 16:30:[address] [facility] TRIMESTER LESS THAN 14 Medical B ranch WEEKS WITH TRANSVAGINAL URINE CULTURE 2022-05-10 15:59:00 Dylon Christian [facility] URINE DRUG (IMMUNOASSAY) - 2022-05-10 15:59:00 Alma Christian [facility] COMPREHENSIVE DRUG SCREEN Medica l Branch PROGESTERONE, LEVEL 2022-05-10 15:29:00 Dylon Christian [facility] SICKLE CELL SCREEN 2022-05-10 15:29:00 [facility] RUBELLA SCREEN IGG 2022-05-10 15:29:00 Dylon Christian [facility] VZV ANTIBODY SCREEN 2022-05-10 15:29:00 Dylon Christian [facility] HEPATITIS B SURFACE 2022-05-10 15:29:00 Dylon Christian [facility] ANTIGEN [facility] HCV ANTIBODY 2022-05-10 15:29:00 Dylon Christian [facility] ADC OR KATHRYN ONLY - RPR 2022-05-10 15:29:00 Niko Chritsian [facility] ANTI-NUCLEAR ANTIBODY 2022-05-10 15:29:00 Dylon Christian [facility] ANTICARDIOLIPIN ANTIBODIES 2022-05-10 15:29:00 Alma Christian [facility] ANTI-B2 GLYCOPROTEIN I AB 2022-05-10 15:29:00 Niko Christian [facility] ANTIPHOSPHOLIPID ANTIBODY 2022-05-10 15:29:00 Niko Christian [facility] CBC WITH DIFF 2022-05-10 15:29:00 Dylon Christian [facility] HB ABO GROUPING 2022-05-10 15:29:00 Dylon Christian [facility] HIV 1/2 AG-AB WITH REFLEX 2022-05-10 15:29:00 Niko Christian [facility] ASSIGNMENT OF BENEFITS 2022-05-06 14:35:05 Doctor Unassigned, Un [facility] [place] [facility] POCT TEST 2022-05-06 00:00:00 Dylon Christian [facility] Encounters Start End Encounter Admission Attending Care Care Encounter Source Date/Time Date/Time Type Type Clinicians Facility Department ID 2022-05-14 2022-05-14 Case LOIS Christian [facility] [id number] Univers 00:00:00 00:00:00 Management Dylon RICHMOND 350.1.13.10 ity of WOMEN'S 4.2.7.2.686 [facility] [id number] [place] [address] Branch 2022-05-13 2022-05-13 Outpatient R DYLON CHRISTIAN [facility] B [id number] Univers 09:21:46 23:59:00 DYLON CHRISTIAN [facility] 2022-05-13 2022-05-13 [facility] [id number] Univers 09:21:46 23:59:00 Encounter Dylon SAM 350.1.13.10 ity of [place] [id number] [facility] 806 Branch 2022-05-11 2022-05-11 Outpatient R DYLON CHRISTIAN [facility] B [id number] Univers 09:30:00 09:30:00 DYLON CHRISTIAN [facility] 2022-05-10 2022-05-10 Web User Experience Strategist [place] Lab Main [facility] 1.2.8 40.114 [id number] Univers 09:15:00 09:30:00 Visit Dylon Christian 350.1.13. 10 ity [facility] 4[place].2.[place] [facility] [id number] De dical [facility] [address] [facility] 2022-05-10 2022-05-10 Outpatient R DYLON CHRISTIAN [facility] B [id number] Univers 09:15:00 09:15:00 DYLON CHRISTIAN [facility] 2022-05-07 2022-05-07 Nurse AMILCAR Arroyo [id number] Univers 00:00:00 00:00:00 Triage Merna RODRIGUEZ 350.1.13.10 it y of HOSPITAL 4.2.7.2.686 Saeid as [id number] [facility] 019 Branch 2022-05-07 2022-05-07 [facility] [id number] Univers 00:00:00 00:00:00 Management Dylon R[place] 350.1.13.10 ity of W[place]2.[place] [facility] [id number] [facility] 134 Branch 2022-05-06 2022-05-06 Initial [facility] [id number] Univers 08:30:00 09:14:59 Dylon RICH[place] 350.1.13.10 i ty of Visit WOMEN'S 4[place]2.7.2.686 [place] [facility] [id number] [facility] 134 Branch 2022-05-06 2022-05-06 Outpatient R DYLON CHRISTIAN [facility] B [id number] Univers 08:30:00 09:14:59 GINO DYLON ity of [facility] 2022-05-06 2022-05-06 Orders Doctor AMILCAR [id number] Univers 00:00:00 00:00:00 Only Unassigned, MICHAEL 350.1.13.10 ity of [place] [facility] 4.2.7.2.686 Saeid [id number] [facility] 009 Branch Results Test Description Test Time Test Comments Results Result Comments Source ANTICARDIOLIPIN ANTIBODIES 2022-05-13 04:31:28 Test Item Value Reference Range Interpretation Comme nts Anticardiolipin See_Comment [Automated message] Antibody IgG (test The syste m which code = 3047076943) generated this result transmitted ref erence range: 0.0 - 10 .0 GPL. The reference r deanna was not used to int erpret this result as normal/abnormal . Anticardiolipin See_Comment [Automated message] Antibody IgM (test The syste m which code = 1887947556) generated this result transmitted ref erence range: 0.0 - 10 .0 MPL. The reference r deanna was not used to int erpret this result as normal/abnormal . Anticardiolipin See_Comment [Automated message] Antibody IgA (test The syste m which code = 1299405975) generated this result transmitted ref erence range: 0.0 - 15 .0 APL. The reference r deanna was not used to int erpret this result as normal/abnormal . DAIN (test code = DAIN) Interpretation: ? IgG ?IgM ?IgANegative Values: ? <10.0 ?<10.0 ? <15.0Indeterminate ("Malave" zone) Values: ? ?10.0-19.0 ? ?10.0-25.0 ? ? 15.0-27.0Medium Values: ? 20.0-80.0 ? ?26.0-80.0 ? ? 28.0-80.0High Positive Values: ? >80.0 ?>80.0 ? >80.0 Note:Medium-high levels of anticardiolipin antibodies (mainly of the IgG isotype)have been associated with thrombosis, recurrent losses andthrombocytopenia in patients with Antiphospholipid Syndrome and SLE relateddisorders.It is recommended to repeat the test that give values in theIndeterminate "Malave" zone range at a later date (i.e. 4-6 weeks) to confirmpositivity. ?Jeevan Herrmann et al. ?J Thromb Haemost 2006; 4: 2210-4 Lab Interpretation Normal (test code = 48050-5) [facility] GLYCOPROTE[facility] I [id number] 03:08:50 Test Item Value Reference Interpretation Comments Range Anti-B2 See_Comment [Automated Glycoprotein 1 IgG message] The (test code = system which 5238108646) generated this result transmitted reference range : 0.0 - 20.0 SGU. The reference range was not used to interpret this result as normal/abnormal . Anti-B2 See_Comment [Automated Glycoprotein 1 IgM message] The (test code = system which 5425243355) generated this result transmitted reference range : 0.0 - 20.0 SMU. The reference range was not used to interpret this result as normal/abnormal . Anti-B2 See_Comment [Automated Glycoprotein 1 IgA message] The (test code = system which 7237470874) generated this result transmitted reference range : 0.0 - 20.0 FITZ. The reference range was not used to interpret this result as normal/abnormal . DAIN (test code = INTERPRETATION:Values DAIN) over 20 SGU, SMU, or FITZ units are considered positive. NOTE:A positive test for anti-B2 Glycoprotein I antibodies may indicate the presence of Antiphospholipid Syndrome. ?Anti-B2 Glycoprotein I antibodies have been associated with thrombosis, recurrent losses and/or thrombocytopenia. TEST PERFORMED AT:[facility]. [id number], [address] [facility] [place] [address] Lab Interpretation Normal (test code = 73744-8) [facility]TIBODY [id number] 00:02:10 Test Item Value Reference Range Interpretation Comments KRYSTIN (test code = Positive Negative A 8614231542) DAIN (test code = DAIN) Negative: ?No Anti-Nuclear Antibodies detected by IFA. Positive: ?KRYSTIN IFA screen performed with a 1:80 dilution in adults and a 1:40 dilution in pediatrics. ?A titer is performed and reported separately when the KRYSTIN is "Positive" or when "Cytoplasmic staining is observed." Lab Interpretation (test Abnormal code = 58067-4) [facility]GE[facility], [id number] 17:47:30 Test Item Value Reference Range Interpretation Comments PROGEST (test code = 17.40 ng/mL 5659323236) DAIN (test code = Normal ranges for DAIN) Progesterone Proliferative: ? ? 0.3 1.5 ng/mLLuteal: ?5.1 18.5 ng/mL [facility]GESTERONE, [id number] 17:47:30 Test Item Value Reference Range Interpretation Comments PROGEST (test code = 17.40 ng/mL 9218697125) DAIN (test code = Normal ranges for DAIN) Progesterone Proliferative: ? ? 0.3 1.5 ng/mLLuteal: ?5.1 18.5 ng/mL [facility] ANTIBODY [id number] 17:07:42 Test Item Value Reference Range Interpretation Comments VZV IgG antibody Negative Negative (test code = 55751-2) DAIN (test code = DAIN) Positive - Indicates the patient was exposed to VZV through infection or vaccination.Negative - Indicates the patient could be susceptible to VZV infection.Equivocal - A second specimen should be sent for testing. [facility]iscoRUBELLA SCREEN [id number] 17:07:42 Test Item Value Reference Range Interpretation Comments Rubella screen IgG Positive Negative (test code = 1875547283) DAIN (test code = DAIN) Positive - Indicates the patient was exposed to Rubella through infection or vaccination.Negative - Indicates the patient could be susceptible to Rubella infection.Equivocal - A second specimen should be sent. [facility]isco[facility] ANTIBODY [id number] 17:07:42 Test Item Value Reference Range Interpretation Comments VZV IgG antibody Negative Negative (test code = 64325-9) DAIN (test code = DAIN) Positive - Indicates the patient was exposed to VZV through infection or vaccination.Negative - Indicates the patient could be susceptible to VZV infection.Equivocal - A second specimen should be sent for testing. [facility]iscoRUBELLA SCREEN [id number] 17:07:42 Test Item Value Reference Range Interpretation Comments Rubella screen IgG Positive Negative (test code = 4717531752) DAIN (test code = DAIN) Positive - Indicates the patient was exposed to Rubella through infection or vaccination.Negative - Indicates the patient could be susceptible to Rubella infection.Equivocal - A second specimen should be sent. [facility] [id number] 13:18:52 Test Item Value Reference Range Interpretation Comments URINE CULTURE (test No aerobic growth (< code = 630-4) 1000 CFU/mL) [facility] [id number] 13:18:52 Test Item Value Reference Range Interpretation Comments URINE CULTURE (test No aerobic growth (< code = 630-4) 1000 CFU/mL) [facility] OR KATHRYN ONLY - [id number] 09:18:10 Test Item Value Reference Range Interpretation Comments RPR (Qualitative) (test code = Nonreactive Nonreactive 86251-3) Lab Interpretation (test code = Normal 08453-7) [facility] OR KATHRYN ONLY - [id number] 09:18:10 Test Item Value Reference Range Interpretation Comments RPR (Qualitative) (test code = Nonreactive Nonreactive 22385-0) Lab Interpretation (test code = Normal 74115-6) [facility] [id number] 02:10:23 Test Item Value Reference Range Interpretation Comments HBsAg Semi-Quantitative (test code = Negative Negative 5195-3) [facility] B SURFACE [id number] 02:10:23 Test Item Value Reference Range Interpretation Comments HBsAg Semi-Quantitative (test code = Negative Negative 5195-3) [facility]isco[facility]ICKLE CELL [id number] 22:42:49 Test Item Value Reference Range Interpretation Comments SICKLE SCR (test code = 6539781294) Negative Negative Lab Interpretation (test code = Normal 84560-6) [facility]isco[facility]ICKLE CELL [id number] 22:42:49 Test Item Value Reference Range Interpretation Comments SICKLE SCR (test code = 0152371315) Negative Negative Lab Interpretation (test code = Normal 37658-5) [facility]isco[facility]CV [id number] 22:37:35 Test Item Value Reference Range Interpretation Comments HCV Ab (test code = 66961-5) Negative HCV Semi-Quantitative (test code = 91962-1) [facility]isco[facility]CV [id number] 22:37:35 Test Item Value Reference Range Interpretation Comments HCV Ab (test code = 26120-5) Negative HCV Semi-Quantitative (test code = 21420-7) [facility]iscoHIV [facility]/2 AG-AB WITH [id number] 17:36:27 Test Item Value Reference Range Interpretation Comments HIV Negative Negative Semi-quantitative (test code = 64111-5) DAIN (test code = Non-reactive for HIV-1 ADIN) antigen and HIV-1/HIV-2 antibodies. ?No laboratory evidence of HIV infection. ?Repeat in 2-4 weeks if acute HIV infection is suspected. [facility]iscoHIV [facility]/2 AG-AB WITH [id number] 17:36:27 Test Item Value Reference Range Interpretation Comments HIV Negative Negative Semi-quantitative (test code = 60903-9) DAIN (test code = Non-reactive for HIV-1 DAIN) antigen and HIV-1/HIV-2 antibodies. ?No laboratory evidence of HIV infection. ?Repeat in 2-4 weeks if acute HIV infection is suspected. [facility]HIV [facility] AG-AB WITH [id number] 17:36:27 Test Item Value Reference Range Interpretation Comments HIV Negative Negative Semi-quantitative (test code = 24744-3) DAIN (test code = Non-reactive for HIV-1 DAIN) antigen and HIV-1/HIV-2 antibodies. ?No laboratory evidence of HIV infection. ?Repeat in 2-4 weeks if acute HIV infection is suspected. [facility]iscoPRENATAL WORKUP, BLOOD [id number] 17:12:48 Test Item Value Reference Range Interpretation Comments ABO & RH (test code B Positive Performe d at [facility] = 20) Laboratory [facility] [place], [place] [address]Toll Free: [phone] A No. [id number] IAT (test code = Negative Performed a t [facility] 1185) Laboratory [facility] Blood [place] [address]Toll Free: [phone] A No. [id number] [facility] WORKUP, BLOOD [id number] 17:12:48 Test Item Value Reference Range Interpretation Comments ABO & RH (test code B Positive Performe d at [facility] = 20) Laboratory [facility] Blood [place] [address]Toll Free: [phone] A No. [id number] IAT (test code = Negative Performed a t [facility] 1185) Laboratory [facility] [place], [place] [address]Toll Free: [phone] A No. [id number] [facility] WORKUP, BLOOD [id number] 17:12:48 Test Item Value Reference Range Interpretation Comments ABO & RH (test code B Positive Performe d at [facility] = 20) Laboratory [facility] Blood [place] [address]Toll Free: [phone] A No. [id number] IAT (test code = Negative Performed a t [facility] 1185) Laboratory [facility] Blood [place] [address]Toll Free: [phone] A No. [id number] [facility] (IMMUNOASSAY) - COMPREHENSIVE DRUG [id number] 16:42:31 Test Item Value Reference Range Interpretation Comments AMPHET (test code = Negative Negative 0345118201) AKSHAT U (test code = Negative Negative 4995314613) BENZO U (test code = Negative Negative 9664165281) Cocaine Metabolite (test Negative Negative code = 7651085275) METHADONE (test code = Negative Negative 5983878482) OPIATES (test code = Negative Negative 4611397347) PCP (test code = Negative Negative 8454614368) THC (test code = Negative Negative 1885285582) DAIN (test code = DAIN) Urine Drug Cutoff Ranges Cocaine: ? 150 ng/mLBenzodiazepines: ? ? 200 ng/mLMethadone: ? 300 ng/mLAmphetamine: ? 1,000 ng/mLOpiates: ? 300 ng/mLCannabinoids: ?50 ng/mLPhencyclidine: ? ? ? 25 ng/mLBarbiturates: ?200 ng/mL The results are to be used only for medical (i.e., treatment) purposes. Unconfirmed screening results must not be used for non-medical purposes (e.g., employment testing, legal testing). Lab Interpretation (test Normal code = 80112-7) [facility] - COMPREHENSIVE DRUG [id number] 16:42:31 Test Item Value Reference Range Interpretation Comments AMPHET (test code = Negative Negative 9874494884) AKSHAT U (test code = Negative Negative 2545498030) BENZO U (test code = Negative Negative 6930653575) Cocaine Metabolite (test Negative Negative code = 2479223910) METHADONE (test code = Negative Negative 2754295208) OPIATES (test code = Negative Negative 6292850122) PCP (test code = Negative Negative 4579743468) THC (test code = Negative Negative 1623010943) DAIN (test code = DAIN) Urine Drug Cutoff Ranges Cocaine: ? 150 ng/mLBenzodiazepines: ? ? 200 ng/mLMethadone: ? 300 ng/mLAmphetamine: ? 1,000 ng/mLOpiates: ? 300 ng/mLCannabinoids: ?50 ng/mLPhencyclidine: ? ? ? 25 ng/mLBarbiturates: ?200 ng/mL The results are to be used only for medical (i.e., treatment) purposes. Unconfirmed screening results must not be used for non-medical purposes (e.g., employment testing, legal testing). Lab Interpretation (test Normal code = 77629-2) [facility] - COMPREHENSIVE DRUG [id number] 16:42:31 Test Item Value Reference Range Interpretation Comments AMPHET (test code = Negative Negative 7952948423) AKSHAT U (test code = Negative Negative 4203618554) BENZO U (test code = Negative Negative 1930287751) Cocaine Metabolite (test Negative Negative code = 2684172023) METHADONE (test code = Negative Negative 0975653488) OPIATES (test code = Negative Negative 2205972613) PCP (test code = Negative Negative 8792913019) THC (test code = Negative Negative 9199801490) DAIN (test code = DAIN) Urine Drug Cutoff Ranges Cocaine: ? 150 ng/mLBenzodiazepines: ? ? 200 ng/mLMethadone: ? 300 ng/mLAmphetamine: ? 1,000 ng/mLOpiates: ? 300 ng/mLCannabinoids: ?50 ng/mLPhencyclidine: ? ? ? 25 ng/mLBarbiturates: ?200 ng/mL The results are to be used only for medical (i.e., treatment) purposes. Unconfirmed screening results must not be used for non-medical purposes (e.g., employment testing, legal testing). Lab Interpretation (test Normal code = 16150-5) [facility] WITH [id number] 15:54:37 Test Item Value Reference Range Interpretation Comments WBC (test code = See_Comment [Automated 6492-2) message] The sy stem which generated this result transmitted reference range : 4.30 - 11.10 10*3/?L. The reference range was not used to interpret this result as normal/abnormal . RBC (test code = See_Comment L [Automated 761-8) message] The sy stem which generated this result transmitted reference range : 3.93 - 5.25 10*6/?L. The reference range was not used to interpret this result as normal/abnormal . HGB (test code = 11.5 g/dL 11.6-15.0 L 718-7) HCT (test code = 34.7 % 35.7-45.2 L 4544-3) MCV (test code = 90.6 fL 80.6-95.5 787-2) MCH (test code = 30.0 pg 25.9-32.8 785-6) MCHC (test code = 33.1 g/dL 31.6-35.1 786-4) RDW-SD (test code = 41.2 fL 39.0-49.9 05795-8) RDW-CV (test code = 12.5 % 12.0-15.5 788-0) PLT (test code = See_Comment [Automated 777-3) message] The sy stem which generated this result transmitted reference range : 166 - 358 10*3/ ?L. The reference r deanna was not used to interpret this result as normal/abnormal . MPV (test code = 9.2 fL 9.5-12.9 L 29878-9) NRBC/100 WBC (test See_Comment [Automat ed code = 7132273201) message] The system which generated this result transmitted reference range : 0.0 - 10.0 /100 WBCs. The refer ence range was not u sed to interpret th is result as normal/abnormal . NRBC x10^3 (test code See_Comment [Auto mated = 1598678972) message] The s ystem which generated this result transmitted reference range : 10*3/?L. The reference range was not used to interpret this result as normal/abnormal . GRAN MAT (NEUT) % 76.9 % (test code = 770-8) IMM GRAN % (test code 0.30 % = 6184913334) LYMPH % (test code = 15.2 % 736-9) MONO % (test code = 7.1 % 5905-5) EOS % (test code = 0.2 % 713-8) BASO % (test code = 0.3 % 706-2) GRAN MAT x10^3(ANC) 4.76 10*3/uL 1.88-7.09 (test code = 5099101919) IMM GRAN x10^3 (test 0.00-0.06 code = 1623081563) LYMPH x10^3 (test code 0.94 10*3/uL 1.32-3.29 L = 731-0) MONO x10^3 (test code 0.44 10*3/uL 0.33-0.92 = 742-7) EOS x10^3 (test code = 0.03-0.39 L 711-2) BASO x10^3 (test code 0.01-0.07 = 704-7) Lab Interpretation Abnormal (test code = 23010-8) [facility] WITH [id number] 15:54:37 Test Item Value Reference Range Interpretation Comments WBC (test code = See_Comment [Automated 6690-2) message] The sy stem which generated this result transmitted reference range : 4.30 - 11.10 10*3/?L. The reference range was not used to interpret this result as normal/abnormal . RBC (test code = See_Comment L [Automated 789-8) message] The sy stem which generated this result transmitted reference range : 3.93 - 5.25 10*6/?L. The reference range was not used to interpret this result as normal/abnormal . HGB (test code = 11.5 g/dL 11.6-15.0 L 718-7) HCT (test code = 34.7 % 35.7-45.2 L 4544-3) MCV (test code = 90.6 fL 80.6-95.5 787-2) MCH (test code = 30.0 pg 25.9-32.8 785-6) MCHC (test code = 33.1 g/dL 31.6-35.1 786-4) RDW-SD (test code = 41.2 fL 39.0-49.9 39537-1) RDW-CV (test code = 12.5 % 12.0-15.5 788-0) PLT (test code = See_Comment [Automated 777-3) message] The sy stem which generated this result transmitted reference range : 166 - 358 10*3/ ?L. The reference r deanna was not used to interpret this result as normal/abnormal . MPV (test code = 9.2 fL 9.5-12.9 L 23859-6) NRBC/100 WBC (test See_Comment [Automat ed code = 3113533276) message] The system which generated this result transmitted reference range : 0.0 - 10.0 /100 WBCs. The refer ence range was not u sed to interpret th is result as normal/abnormal . NRBC x10^3 (test code See_Comment [Auto mated = 3642603407) message] The s ystem which generated this result transmitted reference range : 10*3/?L. The reference range was not used to interpret this result as normal/abnormal . GRAN MAT (NEUT) % 76.9 % (test code = 770-8) IMM GRAN % (test code 0.30 % = 8584342554) LYMPH % (test code = 15.2 % 736-9) MONO % (test code = 7.1 % 5905-5) EOS % (test code = 0.2 % 713-8) BASO % (test code = 0.3 % 706-2) GRAN MAT x10^3(ANC) 4.76 10*3/uL 1.88-7.09 (test code = 9513424670) IMM GRAN x10^3 (test 0.00-0.06 code = 7302853760) LYMPH x10^3 (test code 0.94 10*3/uL 1.32-3.29 L = 731-0) MONO x10^3 (test code 0.44 10*3/uL 0.33-0.92 = 742-7) EOS x10^3 (test code = 0.03-0.39 L 711-2) BASO x10^3 (test code 0.01-0.07 = 704-7) Lab Interpretation Abnormal (test code = 22595-3) [facility] WITH [id number] 15:54:37 Test Item Value Reference Range Interpretation Comments WBC (test code = See_Comment [Automated 4890-2) message] The sy stem which generated this result transmitted reference range : 4.30 - 11.10 10*3/?L. The reference range was not used to interpret this result as normal/abnormal . RBC (test code = See_Comment L [Automated 999-8) message] The sy stem which generated this result transmitted reference range : 3.93 - 5.25 10*6/?L. The reference range was not used to interpret this result as normal/abnormal . HGB (test code = 11.5 g/dL 11.6-15.0 L 718-7) HCT (test code = 34.7 % 35.7-45.2 L 4544-3) MCV (test code = 90.6 fL 80.6-95.5 787-2) MCH (test code = 30.0 pg 25.9-32.8 785-6) MCHC (test code = 33.1 g/dL 31.6-35.1 786-4) RDW-SD (test code = 41.2 fL 39.0-49.9 57416-1) RDW-CV (test code = 12.5 % 12.0-15.5 788-0) PLT (test code = See_Comment [Automated 777-3) message] The sy stem which generated this result transmitted reference range : 166 - 358 10*3/ ?L. The reference r deanna was not used to interpret this result as normal/abnormal . MPV (test code = 9.2 fL 9.5-12.9 L 75881-9) NRBC/100 WBC (test See_Comment [Automat ed code = 6775305261) message] The system which generated this result transmitted reference range : 0.0 - 10.0 /100 WBCs. The refer ence range was not u sed to interpret th is result as normal/abnormal . NRBC x10^3 (test code See_Comment [Auto mated = 7002745779) message] The s ystem which generated this result transmitted reference range : 10*3/?L. The reference range was not used to interpret this result as normal/abnormal . GRAN MAT (NEUT) % 76.9 % (test code = 770-8) IMM GRAN % (test code 0.30 % = 9354750656) LYMPH % (test code = 15.2 % 736-9) MONO % (test code = 7.1 % 5905-5) EOS % (test code = 0.2 % 713-8) BASO % (test code = 0.3 % 706-2) GRAN MAT x10^3(ANC) 4.76 10*3/uL 1.88-7.09 (test code = 3134041532) IMM GRAN x10^3 (test 0.00-0.06 code = 5958852170) LYMPH x10^3 (test code 0.94 10*3/uL 1.32-3.29 L = 731-0) MONO x10^3 (test code 0.44 10*3/uL 0.33-0.92 = 742-7) EOS x10^3 (test code = 0.03-0.39 L 711-2) BASO x10^3 (test code 0.01-0.07 = 704-7) Lab Interpretation Abnormal (test code = 47332-5) [facility] [id number] 20:51:00 Test Item Value Reference Range Interpretation Comments POCT PREG (test code = 1605) Positive On board controls acceptable with C Yes Line (test code = 3574) POCT PREG LOT # (test code = 3575) POCT PREG TEST DATE (test code = 3576) [facility]
[2022-05-15 00:03] LABS: Urine Blood Negative (Negative); Urine Glucose Negative (Negative); Urine Protein Negative (Negative); Urine Specific Gravity >=1.030 (1.005-1.030)
[2022-05-15 00:23] LABS: Urine Specific Gravity/Preg >1.030 (1.005-1.030)
[2022-05-15 00:26] LABS: Urine Bacteria <20 /HPF (<20); Urine Mucus Slight /HPF (None Seen); Urine RBC <5 /HPF (None Seen)
--- NOTE | 2022-05-15 01:32 | ER ---
Nurse's Notes [facility] Name: Marimar Eid Age: 31 yrs Sex: Female : 1990 Arrival Date: 05/14/2022 Time: 22:38 Bed 19 Private MD: Diagnosis: Threatened Presentation: 05/14 22:46 Chief complaint: Spotty vaginal bleeding and low back pain since this morning. Pt is 11 bb weeks 5 days , NIKKI 12/07, . On Flagyl day 3 for trichomonas. Coronavirus screen: At this time, the client does not indicate any symptoms associated with coronavirus-19. Ebola Screen: No symptoms or risks identified at this time. Initial Sepsis Screen: Does the patient meet any 2 criteria? No. Patient's initial sepsis screen is negative. Does the patient have a suspected source of infection? No. Patient's initial sepsis screen is negative. Risk Assessment: Do you want to hurt yourself or someone else? Patient reports no desire to harm self or others. Onset of symptoms was May 14, 2022. 22:46 Method Of Arrival: Ambulatory 22:46 Acuity: RAMIRO 3 bb Historical: - Allergies: 22:48 No Known Allergies; bb - PMHx: 22:48 Hypertensive disorder; bb - PSHx: 22:48 section; Cholecystectomy; D\\T\\C; bb - Immunization history:: Adult Immunizations up to date. - Social history:: Smoking status: Patient denies any tobacco usage or history of. Screenin/19 00:46 Abuse screen: Denies threats or abuse. Denies injuries from another. Nutritional ll3 screening: No deficits noted. Tuberculosis screening: No symptoms or risk factors identified. Fall Risk None identified. Assessment: 05/14 23:30 Obstetrical Assessment: General assessment: awake and alert, anxious, Patient reports ll3 abdominal cramping, Vaginal bleeding. General: Appears in no apparent distress. uncomfortable, Behavior is cooperative, anxious. Pain: Complains of pain in abdomen Pain currently is 7 out of 10 on a pain scale. Quality of pain is described as crampy, Pain began 1 day ago. Is continuous. Neuro: Level of Consciousness is awake, alert, obeys commands, Oriented to person, place, time, situation. : Denies burning with urination, urinary frequency, urgency, Parent/caregiver report the patient having vaginal bleeding that is bright red light flow spotty since "This morning". Vital Signs: 22:46 BP 104 / 86; Pulse 95; Resp 16; Temp 98.1; Pulse Ox 100% on R/A; Weight 73.94 kg; bb Height 5 ft. 1 in. (154.94 cm); Pain 7/10; 05/15 00:46 BP 122 / 80; Pulse 79; Resp 17; Pulse Ox 99% on R/A; ll3 05/14 22:46 Body Mass Index 30.80 (73.94 kg, 154.94 cm) bb ED Course: 05/14 22:38 Patient arrived in ED. ja2 22:48 Triage completed. bb 22:48 Arm band placed on. bb 23:14 Ligia Nagel MD is Attending Physician. sd2 05/15 00:46 Patient has correct armband on for positive identification. Bed in low position. Call ll3 light in reach. Side rails up X 1. Adult w/ patient. 00:46 No provider procedures requiring assistance completed. Patient did not have IV access ll3 during this emergency room visit. 00:46 PATIENT REFUSES BLOOD WORK OR IV. mm9 00:47 US 1st Trimest Single 1st Fetus In Process Unspecified. EDMS 00:47 Placed in gown. Warm blanket given. Pulse ox on. NIBP on. mm9 Administered Medications: No medications were administered Medication: 00:46 VIS not applicable for this client. ll3 Point of Care Testing: Urine : 00:46 hCG Reading: Positive; ll3 Outcome: 01:31 Discharge ordered by . sd2 01:35 Discharged to home ambulatory, with family, with significant other. ll3 01:35 Condition: stable 01:35 Discharge instructions given to patient, family, significant other, Instructed on discharge instructions, follow up and referral plans. Demonstrated understanding of instructions, follow-up care. 01:35 Patient left the ED. ll3 Signatures: Dispatcher [employer] EDMS Pari Reyes RN RN Brenda Bruno [place], RN RN ll3 Ligia Nagel MD MD sd2 Zahida Romero mm9 Corrections: (The following items were deleted from the chart) 11/18 22:48 22:46 Chief complaint: Spotty vaginal bleeding and low back pain since this morning. Pt bb is 11 weeks 5 days , NIKKI 12/07, . bb
--- NOTE | 2022-05-15 01:32 | EDPHYS ---
Physician Documentation [facility] Name: Marimar Eid Age: 31 yrs Sex: Female : 1990 Arrival Date: 05/14/2022 Time: 22:38 Bed 19 Private MD: ED Physician Ligia Nagel HPI: 05/15 01:29 This 31 yrs old Black Female presents to ER via Ambulatory with complaints of Vaginal sd2 Bleeding, + Preg <12wks, Abdominal Cramping. 04:01 31 yo F currently at 11 weeks gestation presents with CC of abdominal cramping and sd2 spotting. Reports ongoing for the past couple of days. Spotting only present with wiping. Denies fever, n/v/d or urinary symptoms. Reports she is currently on Flagyl for Trichomonas and has never taken that before. Has had an US this already that confirmed IUP. . Historical: - Allergies: 05/14 22:48 No Known Allergies; bb - PMHx: 22:48 Hypertensive disorder; bb - PSHx: 22:48 section; Cholecystectomy; D\T\C; bb - Immunization history:: Adult Immunizations up to date. - Social history:: Smoking status: Patient denies any tobacco usage or history of. ROS: 05/15 04:01 Constitutional: Negative for fever, chills, and weight loss, Eyes: Negative for injury, sd2 pain, redness, and discharge, Cardiovascular: Negative for chest pain, palpitations, and edema, Respiratory: Negative for shortness of breath, cough, wheezing. Abdomen/GI: Negative for abdominal pain, nausea, vomiting, diarrhea. : Negative for dysuria, urinary frequency, hesitancy, urgency and hematuria. Positive for vaginal bleeding. MS/Extremity: Negative for injury and deformity, Skin: Negative for injury, rash, and discoloration, Neuro: Negative for headache, numbness and tingling. Exam: 04:01 Constitutional: This is a well developed, well nourished patient who is awake, alert, sd2 and in no acute distress. Head/Face: Normocephalic, atraumatic. Eyes: EOMI, normal conjunctiva bilaterally Chest/axilla: Normal chest wall appearance and motion. Nontender with no deformity. Cardiovascular: Regular rate and rhythm with a normal S1 and S2. No gallops, murmurs, or rubs. 2+ distal pulses. Respiratory: Lungs have equal breath sounds bilaterally, clear to auscultation and percussion. No rales, rhonchi or wheezes noted. No increased work of breathing, no retractions or nasal flaring. Abdomen/GI: Soft, non-tender, with normal bowel sounds. No guarding or rebound. No evidence of tenderness throughout. Skin: Warm, dry with normal turgor. Normal color with no rashes, no lesions, and no evidence of cellulitis. MS/ Extremity: Pulses equal, no cyanosis. Neurovascular intact. Full, normal range of motion. Ambulatory without difficulty. Psych: Awake, alert, with orientation to person, place and time. Behavior, mood, and affect are within normal limits. Vital Signs: 05/14 22:46 BP 104 / 86; Pulse 95; Resp 16; Temp 98.1; Pulse Ox 100% on R/A; Weight 73.94 kg; bb Height 5 ft. 1 in. (154.94 cm); Pain 7/10; 05/15 00:46 BP 122 / 80; Pulse 79; Resp 17; Pulse Ox 99% on R/A; ll3 05/14 22:46 Body Mass Index 30.80 (73.94 kg, 154.94 cm) bb MDM: 05/14 23:14 Patient medically screened. sd2 05/15 01:29 Differential diagnosis: STD, ectopic , among others. Data reviewed: vital sd2 signs, nurses notes, lab test result(s). Counseling: I had a detailed discussion with the patient and/or guardian regarding: the historical points, exam findings, and any diagnostic results supporting the discharge/admit diagnosis, lab results, radiology results, the need for outpatient follow up. ED course: Pt has had US performed but we have not yet received the results. Pt is not wanting to stay for the results. She was advised that no significant issues can be ruled out without these results. We will attempt to call and inform her if anything emergent is called to us about the ultrasound. Pt understands and accepts the risks of leaving including severe disability and/or and understands she may change her mind and return at any time for further evaluation. Verbalizes understanding of strict return precautions.. 04:01 ED course: US followed up by myself with no acute or abnormal findings. . sd2 05/14 23:47 Order name: Urine Microscopic Only; Complete Time: 01:03 sd2 05/15 00:03 Order name: Urine Dipstick-Ancillary; Complete Time: 01:03 EDMS 05/15 00:06 Order name: Urine Dipstick-Ancillary EDMS 05/14 23:47 Order name: US 1st Trimest Single 1st Fetus sd2 05/14 23:47 Order name: Urine Dipstick-Ancillary (obtain specimen); Complete Time: 00:11 sd2 05/15 00:06 Order name: Urine --Ancillary (enter results); Complete Time: 01:03 wm Administered Medications: No medications were administered Point of Care Testing: Urine : 00:46 hCG Reading: Positive; ll3 Disposition Summary: 05/15/22 01:31 Discharge Ordered Location: Home sd2 Problem: new sd2 Symptoms: are unchanged sd2 Condition: Stable sd2 Diagnosis - Threatened sd2 Followup: sd2 - With: Private Physician - When: 2 - 3 days - Reason: Recheck today's complaints, Continuance of care, Re-evaluation by your physician Discharge Instructions: - Discharge Summary Sheet sd2 - Threatened Miscarriage sd2 - Vaginal Bleeding During , First Trimester sd2 Forms: - Medication Reconciliation Form sd2 - Thank You Letter sd2 - Antibiotic Education sd2 - Prescription Opioid Use sd2 Signatures: Dispatcher [employer] Pari Lawrence RN RN bb Dunlop, Stephanie, MD MD sd2
[2022-05-15 01:43] VITALS: TEMP 98.1
[2022-05-15 01:44] VITALS: BP 122/80; O2SAT 99
--- NOTE | 2022-05-17 11:41 | RAD REPORT ---
EXAM DESCRIPTION: US - 1St Trimest Single 1St Fetus - 05/15/2022 12:45 am CLINICAL HISTORY: 31 years Female ABD CRAMPING, COMPARISON: None TECHNIQUE: Endovaginal sonography of the pelvis was performed. FINDINGS: Uterus mildly enlarged measuring 6.4 x 11 x 7.1 cm. Gestational sac is seen within the viejas sarai. Mean sac diameter is 5.1 cm corresponding with a age of 10 weeks 5 days. pole is jaime ntified measuring 4.2 cm. This correlates with a age of 10 weeks 6 days. Average estimated gest ational age is 10 weeks 6 days. This indicates an EDC of December 05, 2022. Heart rate was 165 bpm. No jamil bchorionic hemorrhage. Right ovary is normal in size and echogenicity measuring 1.9 x 2.3 x 3.4 cm. Doppler evaluation revea led satisfactory flow. Left ovary is normal in size and echogenicity measuring 2.3 x 1.4 x 2.1 cm. Doppler evaluation reveal ed satisfactory flow. No abnormal fluid collections seen. IMPRESSION: Single viable 10 week 6 day intrauterine fetus. No abnormality noted. Electronically signed by: Maryanne Tony MD 05/15/2022 1:21 AM TIER OVER Due to temporary technical issues with the PACS/Fluency reporting system, reports are being signed by the in house radiologists without review as a courtesy to insure prompt reporting. The interpreting radiologist is fully responsible for the content of the report.
== END 2022-05-15 01:35 | disposition home or self-care (01) ==
LOC: ER 22:34
DX: O20.0 Threatened abortion (principal); Z3A.11 11 weeks gestation of pregnancy
CPT/HCPCS: 76801; 81003; 81015; 81025; 99283

== ENCOUNTER 2022-08-24 08:24 | Emergency (ER) | payer OTHER ==
--- OUTSIDE RECORDS SUMMARY | 2022-08-24 08:30 | XMS REPORT | Continuity of Care Document ---
:1990 Author Organization [facility] t Address [address] [place] [address] Care Team Providers Name Role Phone DYLON CHRISTIAN Primary Care Physician Unavailable DYLON CHRISTIAN Attending Clinician Unavailable DYLON CHRISTIAN Attending Clinician Unavailable Andrzej VALENCIA, Norah Jeffries Attending Clinician Pcp-Lab Attending Clinician Unavailable NORAH DONNELLY Attending Clinician Unavailable Doctor Unassigned, [place] Attending Clinician Unavailable Brenda Toledo MA Attending Clinician Unavailable Pob, Adc Lab Main Attending Clinician Unavailable Merna Arroyo RN Attending Clinician Unavailable DYLON CHRISTIAN Admitting Clinician Unavailable Payers Payer Name Policy Type Policy Number Effective Date Expiration Date [facility] [id number] 2022 00:00:00 Problems Condition Condition Condition Status Onset Resolution Last Treating Co mments Source Name Details Category Date Date Treatment Clinician Date Obesity in Obesity in Disease Active U nivmel 1-30 ity of 00:00: [place] 00 Medical Branch Supervisio Supervisio Disease Active 2021-06 U hernan n of n of 2-01 [place] other with other 00 Me dical poor poor Branch reproducti reproducti ve or ve or obstetric obstetric history, history, first first trimester trimester Positive Positive Disease Active 2021-06 Unive rs KRYSTIN KRYSTIN 2-01 ity of (antinucle [place]antinucle [place] Medical antibody) antibody) Bran ch Vaginal Vaginal Disease Active 2021-06 Univers itching itching 2-01 ity of 00:00: [place] 00 Medical Branch Mixed Mixed Disease Active 2021-06 Univers anxiety anxiety 1-10 ity of and and 00:00: [place] depressive depressive 00 Me dical disorder disorder [...] Active Univers ALLERGIE Class ity of S [facility] Social History Social Habit Start Date Stop Date Quantity Comments Source ASSERTION 2022-03-14 [facility] 00:00:00 [facility] Exposure to 2022-07-16 2022-07-26 Not sure [facility] SARS-CoV-2 (event) 00:00:00 08:49:00 [facility] Alcohol intake 2022-07-26 2022-07-26 Ex-drinker [facility] 00:00:00 00:00:00 (finding) [facility] Cigarettes smoked 2022-05-06 2022-05-06 Univers ity of current (pack per 00:00:00 00:00:00 [place] ) - Reported Branch Cigarette 2022-05-06 2022-05-06 University of pack-years 00:00:00 00:00:00 [facility] Tobacco use and 2022-05-06 2022-05-06 Smokeless Universit y of exposure 00:00:00 00:00:00 tobacco non-user [facility] dical [place] History of tobacco 2022-05-03 Cigarette Smoker University of use 00:00:00 [facility] Sex [birth year] At [birth year] Universit y of 00:00:00 00:00:00 [facility] Smoking Status Start Date Stop Date Source Tobacco smoking [place] consumption unknown Medical Bran ch Ex-smoker 2022-05-06 00:00:00 2022-05-06 [facility] 00:00:00 Medical Branch Medications Ordered Filled Start Stop Current Ordering Indication Dosage Frequency Signature Comments Components Source Medication Medication Date Date Medication? Clinician (SIG) Name Name aspirin 81 2022-0 Yes [id number] 81mg Take 1 Univers mg EC 1-30 tablet by ity of tablet 00:00: mouth in [place] 00 the Medical morning. Branch loratadine Yes TAKE ONE Uni vers 10 mg 1-03 (1) ity of tablet 00:00: TABLET(S) [place] 00 BY MOUTH Medical IN THE Branch MORNING. albuterol 2022- Yes 2{puff} Inhale 2 Univers 90 1-02 Puffs ity of mcg/actuati 00:00: every 6 [place] as on inhaler 00 (six) Medical hours as Branch needed for Wheezing or Shortness of Breath. montelukast 2022-0 Yes 10mg Take 1 Univers 10 mg 1-02 tablet by ity of tablet 00:00: mouth [place] 00 every Medical evening. Branch loratadine 2022-0 Yes 1{capsu Take 1 Univers 10 mg 1-02 le} capsule by ity of capsule 00:00: mouth in [place] 00 the Medical morning. Branch azithromyci 2022-0 Yes 250mg Take 1 Univers n 1-02 tablet by ity of (ZITHROMAX 00:00: mouth in [place] as Z-ROLA) 250 00 the Medical mg tablet morning. Branch albuterol 2022- Yes [id number] 2{puff} Inhale 2 Univers 90 1-02 Puffs ity of mcg/actuati 00:00: every 6 [place] as on inhaler 00 (six) Medical hours as Branch needed for Wheezing or Shortness of Breath. montelukast 2022-0 Yes 10mg Take 1 Univers 10 mg 1-02 tablet by ity of tablet 00:00: mouth [place] 00 every Medical evening. Branch loratadine 2022-0 Yes 1{capsu Take 1 Univers 10 mg 1-02 le} capsule by ity of capsule 00:00: mouth in [place] 00 the Medical morning. Branch azithromyci 2022-0 Yes 250mg Take 1 Univers n 1-02 tablet by ity of (ZITHROMAX 00:00: mouth in [place] Z-ROLA) 250 00 the Medical mg tablet morning. Branch albuterol Yes 2{puff} Inhale 2 Univers 90 1-02 Puffs ity of mcg/actuati 00:00: every 6 [place] as on inhaler 00 (six) Medical hours as Branch needed for Wheezing or Shortness of Breath. montelukast Yes 10mg Take 1 Univers 10 mg 1-02 tablet by ity of tablet 00:00: mouth [place] 00 every Medical evening. Branch loratadine Yes 1{capsu Take 1 Univers 10 mg 1-02 le} capsule by ity of capsule 00:00: mouth in [place] 00 the Medical morning. Branch azithromyci Yes 250mg Take 1 Univers n 1-02 tablet by ity of (ZITHROMAX 00:00: mouth in [place] Z-ROLA) 250 00 the Medical mg tablet morning. Branch metroNIDAZO 2021-06- Yes [id number] 500mg Take 1 Univers LE 500 mg 08-01 tablet by ity of tablet 00:00: 05:59 mouth [place] 00 :00 every 12 Medical (twelve) Branch hours for 7 days. metroNIDAZO 2021-06- Yes [id number] 500mg Take 1 Univers LE 500 mg 08-01- tablet by ity of tablet 00:00: 05:59 mouth [place] 00 :00 every 12 Medical (twelve) Branch hours for 7 days. metroNIDAZO 2021-06- Yes [id number] 500mg Take 1 Univers LE 500 mg 2- tablet by ity of tablet 00:00: 05:59 mouth [place] 00 :00 every 12 Medical (twelve) Branch hours for 7 days. metroNIDAZO 2021-06- Yes [id number] 500mg Take 1 Univers LE 500 mg 08-01- tablet by ity of tablet 00:00: 05:59 mouth [place] 00 :00 every 12 Medical (twelve) Branch hours for 7 days. 2021-06- No Take by Unive rs 25/iron 07-28 mouth. ity of fum/folic/d 09:21: 00:00 [place] claudio 15 :00 Medical (-1 Branch ORAL) 2021-06- No Take by Unive rs 25/iron 07-28 mouth. ity of fum/folic/d 09:21: 00:00 [place] claudio 15 :00 Medical (-1 Branch ORAL) terconazole 2021-06- Yes [id number] 80mg Insert 1 Univers 80 mg 07-28 Suppositor ity of vaginal 00:00: 05:59 y into [place] suppository 00 :00 vagina at [facility] for 3 days. terconazole 2021-06- Yes [id number] 80mg Insert 1 Univers 80 mg 07-28 Suppositor ity of vaginal 00:00: 05:59 y into [place] suppository 00 :00 vagina at [facility] for 3 days. terconazole 2021-06- Yes [id number] 80mg Insert 1 Univers 80 mg 07-28 Suppositor ity of vaginal 00:00: 05:59 y into [place] suppository 00 :00 vagina at [facility] for 3 days. metroNIDAZO 2021-06- No [id number] 500mg Take 1 Univers LE 500 mg 07-07- tablet by ity of tablet 00:00: 05:59 mouth [place] 00 :00 every 12 [facility] (twelve) Branch hours for 7 days. metroNIDAZO 2021-06- No [id number] 500mg Take 1 Univers LE 500 mg 07-07-19 tablet by ity of tablet 00:00: 05:59 mouth [place] 00 :00 every 12 Medical (twelve) Branch hours for 7 days. metroNIDAZO 2021-06- No [id number] 500mg Take 1 Univers LE 500 mg 07-07-19 tablet by ity of tablet 00:00: 05:59 mouth [place] 00 :00 every 12 Medical (twelve) Branch hours for 7 days. metroNIDAZO 2021-06- No [id number] 500mg Take 1 Univers LE 500 mg 07-07-19 tablet by ity of tablet 00:00: 05:59 mouth [place] 00 :00 every 12 Medical (twelve) Branch hours for 7 days. metroNIDAZO 2021-06- No [id number] 500mg Take 1 Univers LE 500 mg 07-07 tablet by ity of tablet 00:00: 05:59 mouth [place] 00 :00 every 12 Medical (twelve) Branch hours for 7 days. metroNIDAZO 2021-06- No [id number] 500mg Take 1 Univers LE 500 mg 07-07 tablet by ity of tablet 00:00: 05:59 mouth [place] 00 :00 every 12 Medical (twelve) Branch hours for 7 days. metroNIDAZO 2021-06- No [id number] 500mg Take 1 Univers LE 500 mg 07-07 tablet by ity of tablet 00:00: 05:59 mouth [place] 00 :00 every 12 Medical (twelve) Branch hours for 7 days. metroNIDAZO 2021-06- No [id number] 500mg Take 1 Univers LE 500 mg 07-07 tablet by ity of tablet 00:00: 05:59 mouth [place] 00 :00 every 12 Medical (twelve) Branch hours for 7 days. 2021-06 Yes Take by Univer s 25/iron 1-10 mouth. ity of fum/folic/d 08:57: [facility] 02 Medical (-1 Branch ORAL) 2021-06 Yes Take by Univer s 25/iron 1-10 mouth. ity of fum/folic/d 08:57: [facility] 02 Medical (-1 Branch ORAL) 2021-06 Yes Take by Univer s 25/iron 1-10 mouth. ity of fum/folic/d 08:57: [facility] 02 Medical (-1 Branch ORAL) 2021-06 Yes Take by Univer s 25/iron 1-10 mouth. ity of fum/folic/d 08:57: [place] claudio 02 Medical (-1 Branch ORAL) 2021-06 Yes Take by Univer s 25/iron 1-10 mouth. ity of fum/folic/d 08:57: [place] claudio 02 Medical (-1 Branch ORAL) 2021-06 Yes Take by Univer s 25/iron 1-10 mouth. ity of fum/folic/d 08:57: [place] claudio 02 Medical (-1 Branch ORAL) 2021-06 Yes Take by Univer s 25/iron 1-10 mouth. ity of fum/folic/d 08:57: [place] claudio 02 Medical (-1 Branch ORAL) 2021-06 Yes Take by Univer s 25/iron 1-10 mouth. ity of fum/folic/d 08:57: [place] claudio 02 Medical (-1 Branch ORAL) 2021-06 Yes Take by Univer s 25/iron 1-10 mouth. ity of fum/folic/d 08:57: [place] claudio 02 Medical (-1 Branch ORAL) 2021-06 Yes Take by Univer s 25/iron 1-10 mouth. ity of fum/folic/d 08:57: [place] claudio 02 Medical (-1 Branch ORAL) 2021-06 Yes [id number] 1{tbl} Take 1 Univers vit 1-10 tablet by ity of no.130-iron 00:00: [place] -f[place] 00 the Medical ( morning. Branch VITAMIN) 2021-06 Yes [id number] 1{tbl} Take 1 Univers vit 1-10 tablet by ity of no.130-iron 00:00: [place] -f[place] 00 the Medical ( morning. Branch VITAMIN) 2021-06 Yes [id number] 1{tbl} Take 1 Univers vit 1-10 tablet by ity of no.130-iron 00:00: [place] -folic 00 the Medical ( morning. Branch VITAMIN) 2021-06 Yes [id number] 1{tbl} Take 1 Univers vit 1-10 tablet by ity of no.130-iron 00:00: mouth [place] -f[place] 00 the Medical ( morning. Branch VITAMIN) 2021-06 Yes [id number] 1{tbl} Take 1 Univers vit 1-10 tablet by ity of no.130-iron 00:00: mouth [place] -folic 00 the Medical ( morning. Branch VITAMIN) PRENATABS 2021-06 Yes TAKE ONE Univ ers RX tablet 1-10 (1) ity of 00:00: TABLET(S) [place] 00 BY MOUTH Medical IN THE Branch MORNING. 2021-06 Yes [id number] 1{tbl} Take 1 Univers vit 1-10 tablet by ity of no.130-iron 00:00: mouth in [place] -folic 00 the Medical ( morning. Branch VITAMIN) 2021-06 Yes [id number] 1{tbl} Take 1 Univers vit 1-10 tablet by ity of no.130-iron 00:00: mouth in [place] -folic 00 the Medical ( morning. Branch VITAMIN) 2021-06 Yes [id number] 1{tbl} Take 1 Univers vit 1-10 tablet by ity of no.130-iron 00:00: mouth [place] -folic 00 the Medical ( morning. Branch VITAMIN) 2021-06 Yes [id number] 1{tbl} Take 1 Univers vit 1-10 tablet by ity of no.130-iron 00:00: mouth in [place] -folic 00 the Medical ( morning. Branch VITAMIN) 2021-06 Yes [id number] 1{tbl} Take 1 Univers vit 1-10 tablet by ity of no.130-iron 00:00: mouth [place] -folic 00 the Medical ( morning. Branch VITAMIN) 2021-06 Yes [id number] 1{tbl} Take 1 Univers vit 1-10 tablet by ity of no.130-iron 00:00: mouth [place] -folic 00 the Medical ( morning. Branch VITAMIN) 2021-06 Yes [id number] 1{tbl} Take 1 Univers vit 1-10 tablet by ity of no.130-iron 00:00: mouth in [place] -folic 00 the Medical ( morning. Branch VITAMIN) 2021-06 Yes [id number] 1{tbl} Take 1 Univers vit 1-10 tablet by ity of no.130-iron 00:00: mouth in [place] -folic 00 the Medical ( morning. Branch VITAMIN) 2021-06 Yes [id number] 1{tbl} Take 1 Univers vit 1-10 tablet by ity of no.130-iron 00:00: mouth [place] -folic 00 the Medical ( morning. Branch VITAMIN) 2021-06 Yes [id number] 1{tbl} Take 1 Univers vit 1-10 tablet by ity of no.130-iron 00:00: mouth [place] -folic 00 the Medical ( morning. Branch VITAMIN) 2021-06 Yes [id number] 1{tbl} Take 1 Univers vit 1-10 tablet by ity of no.130-iron 00:00: mouth [place] -folic 00 the Medical ( morning. Branch VITAMIN) 2021-06 Yes [id number] 1{tbl} Take 1 Univers vit 1-10 tablet by ity of no.130-iron 00:00: mouth [place] -folic 00 the Medical ( morning. Branch VITAMIN) 2021-06 Yes [id number] 1{tbl} Take 1 Univers vit 1-10 tablet by ity of no.130-iron 00:00: mouth [place] -folic 00 the Medical ( morning. Branch VITAMIN) 2021-06 Yes [id number] 1{tbl} Take 1 Univers vit 1-10 tablet by ity of no.130-iron 00:00: mouth [place] -folic 00 the Medical ( morning. Branch VITAMIN) 2021-06 Yes [id number] 1{tbl} Take 1 Univers vit 1-10 tablet by ity of no.130-iron 00:00: mouth [place] -folic 00 the Medical ( morning. Branch VITAMIN) 2021-06 Yes [id number] 1{tbl} Take 1 Univers vit 1-10 tablet by ity of no.130-iron 00:00: mouth [place] -folic 00 the Medical ( morning. Branch VITAMIN) 2021-06 Yes [id number] 1{tbl} Take 1 Univers vit 1-10 tablet by ity of no.130-iron 00:00: mouth [place] -folic 00 the Medical ( morning. Branch VITAMIN) 2021-06 Yes [id number] 1{tbl} Take 1 Univers vit 1-10 tablet by ity of no.130-iron 00:00: mouth [place] -folic 00 the Medical ( morning. Branch VITAMIN) 2021-06 Yes [id number] 1{tbl} Take 1 Univers vit 1-10 tablet by ity of no.130-iron 00:00: mouth [place] -folic 00 the Medical ( morning. Branch VITAMIN) PRENATABS 2021-06- No TAKE ONE Uni vers RX tablet 1-10 05-27 (1) ity of 00:00: 00:00 TABLET(S) [place] 00 :00 BY MOUTH Medical IN THE Branch MORNING. PRENATABS 2021-06- No TAKE ONE Uni vers RX tablet 07-06 (1) ity of 00:00: 00:00 TABLET(S) [place] 00 :00 BY MOUTH Medical IN THE Branch MORNING. 2021-06- No [id number] 1{tbl} Take 1 Univers vit 07-06 11-10 tablet by ity of no.130-iron 00:00: 00:00 mouth [place] -folic 00 :00 the Medical ( morning. Branch VITAMIN) Vital Signs Vital Name Observation Time Observation Value Comments Source Systolic blood 2022-07-26 14:59:00 96 mm[Hg] Univer sity of [facility] Diastolic blood 2022-07-26 14:59:00 66 mm[facility]Hg] [facility] 2022-07-26 14:57:00 109 /min Universi [facility] Body temperature 2022-07-26 14:57:00 36.89 Antonette [facility] Respiratory rate 2022-07-26 14:57:00 18 /min [facility] Body height 2022-07-26 14:57:[address] [facility] Body weight 2022-07-26 14:57:00 80.74 kg [facility] BMI 2022-07-26 14:57:00 33.63 kg/m2 [facility] Systolic blood 2022-06-28 15:02:00 99 mm[Hg] Univer sity of [facility] Diastolic blood 2022-06-28 15:02:00 65 mm[Hg] Unive rsity of [facility] Heart rate 2022-06-28 15:02:00 100 /min Universi ty [facility] Body temperature 2022-06-28 15:02:00 36.94 Antonette [facility] 2022-06-28 15:02:00 18 /min [facility] Body height 2022-06-28 15:02:00 154.9 cm Universi ty [facility] Body weight 2022-06-28 15:02:[address] [facility] ty [facility] BMI 2022-06-28 15:02:00 32.31 kg/m2 Universi ty of [place] [facility] Systolic blood 2022-06-03 15:41:00 113 mm[Hg] Univer sity of pressure [place] [facility] Diastolic blood 2022-06-03 15:41:00 77 mm[Hg] Unive rsity of pressure [place] [facility] Heart rate 2022-06-03 15:41:00 100 /min Universi ty of [place] [facility] Body temperature 2022-06-03 15:41:00 36.22 Antonette Univ ersity of [place] [facility] Respiratory rate 2022-06-03 15:41:00 18 /min Univ ersity of [place] [facility] Body height 2022-06-03 15:41:00 154.9 cm Universi ty of [place] [facility] Body weight 2022-06-03 15:41:00 75.342 kg Universi ty of [place] [facility] BMI 2022-06-03 15:41:00 31.38 kg/m2 Universi ty of [place] [facility] [place] Oxygen saturation in 2022-06-03 15:41:00 99 /min r/a University of Arterial blood by [facility] Pulse oximetry Branch Systolic blood 2022-05-27 15:20:00 107 mm[Hg] Univer sity of pressure [place] [facility] Diastolic blood 2022-05-27 15:20:00 70 mm[Hg] Unive rsity of pressure [place] [facility] [place] Heart rate 2022-05-27 15:20:00 104 /min Universi ty of [place] [facility] [place] Body temperature 2022-05-27 15:20:00 36.89 Antonette Univ ersity of [facility] Respiratory rate 2022-05-27 15:20:00 18 /min Univ ersity of [place] [facility] Body height 2022-05-27 15:20:00 154.9 cm Universi ty of [place] [facility] Body weight 2022-05-27 15:20:00 74.844 kg Universi ty of [place] [facility] BMI 2022-05-27 15:20:00 31.18 kg/m2 Universi ty of [place] [facility] Systolic blood 2022-05-11 15:36:00 124 mm[Hg] Univer sity of pressure [place] [facility] Diastolic blood 2022-05-11 15:36:00 82 mm[Hg] Unive rsity of pressure [facility] Heart rate 2022-05-11 15:36:00 80 /min Universi ty of [place] [facility] Body temperature 2022-05-11 15:36:00 36.78 Antonette Univ ersity of [facility] Respiratory rate 2022-05-11 15:36:00 18 /min Univ ersity of [facility] Body height 2022-05-11 15:36:00 154.9 cm Universi ty of [place] [facility] Body weight 2022-05-11 15:36:00 73.664 kg Universi ty of [place] [facility] BMI 2022-05-11 15:36:00 30.69 kg/m2 Universi ty of [facility] Systolic blood 2022-05-06 14:55:00 96 mm[Hg] Univer sity of pressure [facility] Diastolic blood 2022-05-06 14:55:00 44 mm[Hg] Unive rsity of pressure [facility] Heart rate 2022-05-06 14:55:00 100 /min Universi ty of [place] [facility] [place] Body temperature 2022-05-06 14:55:00 37.11 Antonette [facility] ersity of [facility] Respiratory rate 2022-05-06 14:55:00 16 /min Univ ersity of [facility] Body height 2022-05-06 14:55:00 165.1 cm Universi ty of [place] [facility] Body weight 2022-05-06 14:55:00 76.975 kg Universi ty of [place] [facility] [place] BMI 2022-05-06 14:55:00 28.24 kg/m2 Universi ty of [facility] Oxygen saturation in 2022-05-06 14:55:00 97 /min [facility] blood by [facility] Pulse oximetry Branch Procedures Procedure Date / Time Performing Clinician Source Performed POCT URINALYSIS W/O 2022-07-26 00:00:00 Dylon Christian [facility] SPECIFIC GRAVITY [facility] GC & CHLAMYDIA AMPLIFIED 2022-06-28 15:06:00 Dylon Christian [facility] ASSAY [facility] TRICHOMONAS AMPLIFIED 2022-06-28 15:06:00 [facility] W/O 2022-06-28 00:00:00 Dylon Christian [facility] SPECIFIC GRAVITY [facility] SCANNED LAB RESULTS 2022-06-01 06:01:00 [facility] [place] [facility] US FIRST 2022-05-13 16:30:46 Dylon Christian [facility] TRIMESTER LESS THAN 14 Medical B ranch WEEKS WITH TRANSVAGINAL URINE CULTURE 2022-05-10 15:59:00 Dylon Christian [facility] URINE DRUG (IMMUNOASSAY) - 2022-05-10 15:59:00 Alma Christian [facility] COMPREHENSIVE [facility]CREEN [facility] PROGESTERONE, LEVEL 2022-05-10 15:29:00 Dylon Christian [facility] SICKLE CELL SCREEN 2022-05-10 15:29:00 Dylon Christian [facility] RUBELLA SCREEN IGG 2022-05-10 15:29:00 [facility] ANTIBODY SCREEN 2022-05-10 15:29:00 Dylon Christian [facility] HEPATITIS B SURFACE 2022-05-10 15:29:00 Dylon Christian [facility] HCV ANTIBODY 2022-05-10 15:29:00 Dylon Christian [facility] ADC OR KATHRYN ONLY - RPR 2022-05-10 15:29:00 Niko Christian [facility] ANTI-NUCLEAR ANTIBODY 2022-05-10 15:29:00 [facility]TICARD[facility]TIBODIES 2022-05-10 15:29:00 Alma Christian [facility] ANTI-B2 GLYCOPROTEIN I AB 2022-05-10 15:29:00 Niko Christian [facility] ANTIPHOSPHOLIPID ANTIBODY 2022-05-10 15:29:00 Niko Christian [facility] CBC WITH DIFF 2022-05-10 15:29:00 Dylon Christian [facility] HB ABO GROUPING 2022-05-10 15:29:00 Dylon Christiani ty [facility] HIV 1/2 AG-AB WITH REFLEX 2022-05-10 15:29:00 Niko Christian [facility] ASSIGNMENT OF BENEFITS 2022-05-06 14:35:05 Doctor Unassigned, Un [facility] [place] [facility] POCT TEST 2022-05-06 00:00:00 Dylon Christian [facility] Encounters Start End Encounter Admission Attending Care Care Encounter Source Date/Time Date/Time Type Type Clinicians Facility Department ID 2022-09-13 2022-09-13 Outpatient R DYLON CHRISTIAN [facility] B [id number] Univers 08:30:00 08:30:00 DYLON CHRISTIAN [facility] 2022-08-25 2022-08-25 Outpatient P [facility] [id number] Univers 11:00:00 11:00[facility] 2022-08-23 2022-08-23 Outpatient R DYLON CHRISTIAN [facility] B [id number] Univers 09:00:00 09:00:00 DYLON CHRISTIAN [facility] 2022-07-26 2022-07-26 Routine Phylicia [facility] 1.2.840.114 [id number] Univers 09:00:00 09:12:07 Dylon [place] [id number] i ty of Visit WOMEN'S 4.2.7.2.686 [facility] [id number] [address] 2022-07-26 2022-07-26 Outpatient R DYLON CHRISTIAN [facility] B [id number] Univers 09:00:00 09:12:07 DYLON CHRISTIAN [facility] 2022 2022 Telephone Phylicia [facility] 1.2.840.11 [id number] Univers 00:00:00 00:00:00 Dylon [place] [id number] it y of WOMEN'S 4.2.7.2.686 [facility] [id number] [address] 2022-06-28 2022-06-28 Outpatient R SHIVANITERE STYLESLETICIA [facility] B [id number] Univers 09:00:00 09:21:36 NIURKADYLON MADDOX ity of [facility] 2022-06-28 2022-06-28 Routine [facility] 1.2.840.114 [id number] Univers 09:00:00 09:21:36 Dylon [place] 350.1.13.10 i ty of Visit W[place] 4[place]2.686 [place] [id number] [address] 2022-06-24 2022-06-24 Telephone [facility] [id number] [id number] Univers 00:00:00 00:00:00 Dylon [place] [id number] it y of WOMEN'[facility] 4.2.7.2.686 [id number] [address] 2022-06-14 2022-06-14 Patient Andrzej [facility] [id number] [id number] Univers 00:00:00 00:00:00 Secure Msg Norah PRIMARY [id number] ity of [place] C[place] 4.2.7.2.686 [place] [id number] Me dical [address] [place] 2022-06-10 2022-06-10 Telephone [facility] 1.2.840.11 [id number] Univers 00:00:00 00:00:00 Dylon [place] [id number] [place] P[place]7.2.686 [place] [id number] [address] 2022-06-03 2022-06-03 City Driver Pcp-Lab [facility] 1.2.840.114 [id number] Univers 10:45:00 11:00:00 Visit Norah Donnelly [place] PRIMARY 350.1.13. 10 ity of C[place] 4.2.7.2.686 [place] [id number] Me dical [address] Branch 2022-06-03 2022-06-03 Outpatient R ANDRZEJ [facility] [id number] Univers 09:40:00 10:01:56 NORAH ity of [facility] 2022-06-03 2022-06-03 [facility] 1.2.840.114 [id number] Univers 09:40:00 10:01:56 Visit Norah [facility] 350.1.13.10 it y of [place] [id number] Mi dical [address] 2022-06-01 2022-06-01 Orders Doctor AMILCAR 1.2.840.114 [id number] Univers 00:00:00 00:00:00 Only Unassigned, MICHAEL 350.1.13.[address] [place] [facility] 4.2.7.2.686 Saeid as [id number] [place] [address] [address] 2022-05-31 2022-05-31 [facility].840[facility]11 [id number] Univers 00:00:00 00:00:00 Dylon RICHMOND 350.1.13.10 it y [place] [id number] [address] 2022-05-27 2022-05-27 Outpatient R DYLON [facility] B [id number] Univers 09:15:00 09:36:49 [facility]ON [facility] 2022-05-27 2022-05-27 Routine Phylicia [facility] 1.2.840.114 [id number] Univers 09:15:00 09:36:49 Dylon RICHMOND 350.1.13.10 i ty of [place] [id number] [address] 2022-05-27 2022-05-27 Patient [place] [facility] VELAZQUEZ 1.2.258.046 [id number] Univers 00:00:00 00:00:00 Secure Msg Brenda RICHMOND 350.1.13.10 it[place] [id number] [facility] [address] 2022-05-17 2022-05-17 Case Phylicia [facility] 1.2.840.114 [id number] Univers 00:00:00 00:00:00 Management Dylon RICHMOND 350.1.13.10 ity of WOMEN'S 4.2.7.2.686 [facility] [id number] [facility] [address] 2022-05-14 2022-05-14 Case Phylicia [facility] 1.2.840.114 [id number] Univers 00:00:00 00:00:00 Management Dylon RICHMOND 350.1.13.10 ity of WOMEN'S 4.2.7.2.686 [facility] [id number] [address] 2022-05-13 2022-05-13 Outpatient R DYLON [facility] B [id number] [facility] 09:21:46 23:59:00 [facility] 2022-05-13 2022-05-13 [facility] 1.2.840.114 [id number] Univers 09:21:46 23:59:00 Encounter Dylon CECY 350.1.13.10 ity of [place] 4.2.7.2.686 [facility] [id number] [facility] [address] 2022-05-11 2022-05-11 Routine [facility] 1.2.840.114 [id number] Univers 09:30:00 09:52:12 Dylon RICHMOND 350.1.13.10 i ty of Visit WOMEN'S 4.2.7.2.686 [facility] [id number] [facility] [address] 2022-05-11 2022-05-11 Outpatient R DYLON [facility] B [id number] Univers 09:30:00 09:52:12 [facility]ON [facility] 2022-05-10 2022-05-10 City Driver Pierce [facility] Main [facility] 1.2.8 40.114 [id number] Univers 09:15:00 09:30:00 Visit Dylon Christian 350.1.13. 10 [place] [id number] Mi dical [address] 2022-05-10 2022-05-10 Outpatient R [facility]ON [facility] B [id number] Univers 09:15:00 09:15:00 [facility]ON [facility] 2022-05-07 2022-05-07 Nurse AMILCAR Arroyo 1.2.840.114 [id number] Univers 00:00:00 00:00:00 Triage Merna MICHAEL 350.1.13.10 it y of HOSPITAL 4.2.7.2.686 [place] as [id number] [address] 2022-05-07 2022-05-07 Case LOIS Christian 1.2.840.114 [id number] Univers 00:00:00 00:00:00 Management Dylon RICHMNOD 350.1.13.10 it[place] [id number] [address] 2022-05-06 2022-05-06 Initial Phylicia SCDEBORAH VELAZQUEZ 1.2.840.114 [id number] Univers 08:30:00 09:14:59 Dylon RICHMOND 350.1.13.10 i ty of Visit [place] [id number] [address] 2022-05-06 2022-05-06 Outpatient R [facility]YLON [facility] B [id number] Univers 08:30:00 09:14:59 NIURKADYLON MADDOX [facility] 2022-05-06 2022-05-06 Orders Doctor AMILCAR 1.2.840.114 [id number] Univers 00:00:00 00:00:00 Only Unassigned, MICHAEL 350.1.13.10 ity of [place] HOSPITAL 4.2.7.2.686 Saeid as [id number] [address] Results Test Description Test Time Test Comments Results Result Comments Source POCT URINALYSIS W/O SPECIFIC GRAVITY 2022-07-26 15:03:00 Test Item Value Reference Range Interpretation Comme nts POCT PH U (test code = 3254) N/A 5-8 POCT U LEUK EST (test code = 3263) N/A Negative - Negative POCT U NIT (test code = 3262) N/A Negative - Negative POCT U PROT (test code = 3259) Negative Negative - Negative POCT U GLU (test code = 3256) Negative Negative - Negative POCT U KETONE (test code = 3258) N/A Negative - Negative POCT U BLD (test code = 3257) N/A Negative - Negative [facility] SPECIFIC [id number] 15:25:00 Test Item Value Reference Range Interpretation Comments POCT PH U (test code = 3254) N/A 5-8 POCT U LEUK EST (test code = N/A Negative - Negative 3263) POCT U NIT (test code = 3262) N/A Negative - Negative POCT U PROT (test code = 3259) Negative Negative - Negative POCT U GLU (test code = 3256) Negative Negative - Negative POCT U KETONE (test code = 3258) N/A Negative - Negative POCT U BLD (test code = 3257) N/A Negative - Negative [facility] [id number] 04:31:28 Test Item Value Reference Interpretation Comments Range Anticardiolipin See_Comment [Automated Antibody IgG (test message] The code = 4075519729) system [facility] generated this result transmitted reference range: 0.0 - 10.0 GPL. The reference range was not used to interpret this result as normal/abnormal . Anticardiolipin See_Comment [Automated Antibody IgM (test message] The code = 0747252970) system [facility] generated this result transmitted reference range: 0.0 - 10.0 MPL. The reference range was not used to interpret this result as normal/abnormal . Anticardiolipin See_Comment [Automated Antibody IgA (test message] The code = 3929497519) system [facility] generated this result transmitted reference range: 0.0 - 15.0 APL. The reference range was not used to interpret this result as normal/abnormal . DAIN (test code = Interpretation: ? DAIN) ? IgG ?IgM ?IgANegative Values: ? <10.0 [...] the test that give values in theIndeterminate "Mlaave" zone range at a later date (i.e. 4-6 weeks) to confirmpositivity. ?Jeevan R et al. ?J Thromb Haemost 2006; 4: 2210-4 Lab Interpretation Normal (test code = 83549-1) [facility] Center[facility]2 GLYCOPROTEIN I [id number] 03:08:50 Test Item Value Reference Interpretation Comments Range Anti-B2 See_Comment [Automated Glycoprotein 1 IgG message] The (test code = system which 3043094578) generated this result transmitted reference range : 0.0 - 20.0 SGU. The reference range was not used to interpret this result as normal/abnormal . Anti-B2 See_Comment [Automated Glycoprotein 1 IgM message] The (test code = system which 2320178618) generated this result transmitted reference range : 0.0 - 20.0 SMU. The reference range was not used to interpret this result as normal/abnormal . Anti-B2 See_Comment [Automated Glycoprotein 1 IgA message] The (test code = system which 7408520367) generated this result transmitted reference range : [...] losses and/or thrombocytopenia. TEST PERFORMED AT:[facility]. [id number] [place] [address], 4.300 [employer] [facility] [place] [address] Lab Interpretation Normal (test code = 03252-5) [facility] Center[facility]I-NUCLEAR ANTIBODY [id number] 00:02:10 Test Item Value Reference Range Interpretation Comments KRYSTIN (test code = Positive Negative A 9367609570) DAIN (test code = DAIN) Negative: ?No Anti-Nuclear Antibodies detected by IFA. Positive: ?KRYSTIN IFA screen performed with a 1:80 dilution in adults and a 1:40 dilution in pediatrics. ?A titer is performed and reported separately when the KRYSTIN is "Positive" or when "Cytoplasmic staining is observed." Lab Interpretation (test Abnormal code = 55910-5) [facility] CenterPROGESTERONE, [id number] 17:47:30 Test Item Value Reference Range Interpretation Comments PROGEST (test code = 17.40 ng/mL 8575299523) DAIN (test code = Normal ranges for DAIN) Progesterone Proliferative: ? ? 0.3 1.5 ng/mLLuteal: ?5.1 18.5 ng/mL [facility] CenterPROGESTERONE, [id number] 17:47:30 Test Item Value Reference Range Interpretation Comments PROGEST (test code = 17.40 ng/mL 0226317885) DAIN (test code = Normal ranges for DAIN) Progesterone Proliferative: ? ? 0.3 1.5 ng/mLLuteal: ?5.1 18.5 ng/mL [facility] CenterVZV ANTIBODY [id number] 17:07:42 Test Item Value Reference Range Interpretation Comments VZV IgG antibody Negative Negative (test code = 51669-9) DAIN (test code = DAIN) Positive - Indicates the patient was exposed to VZV through infection or vaccination.Negative - Indicates the patient could be susceptible to VZV infection.Equivocal - A second specimen should be sent for testing. [facility] SCREEN [id number] 17:07:42 Test Item Value Reference Range Interpretation Comments Rubella screen IgG Positive Negative (test code = 2159192196) DAIN (test code = DAIN) Positive - Indicates the patient was exposed to Rubella through infection or vaccination.Negative - Indicates the patient could be susceptible to Rubella infection.Equivocal - A second specimen should be sent. [facility] CenterVZV ANTIBODY [id number] 17:07:42 Test Item Value Reference Range Interpretation Comments VZV IgG antibody Negative Negative (test code = 09577-4) DAIN (test code = DAIN) Positive - Indicates the patient was exposed to VZV through infection or vaccination.Negative - Indicates the patient could be susceptible to VZV infection.Equivocal - A second specimen should be sent for testing. [facility] [id number] 17:07:42 Test Item Value Reference Range Interpretation Comments Rubella screen IgG Positive Negative (test code = 3197501159) DAIN (test code = DAIN) Positive - Indicates the patient was exposed to Rubella through infection or vaccination.Negative - Indicates the patient could be susceptible to Rubella infection.Equivocal - A second specimen should be sent. [facility] CenterURINE [id number] 13:18:52 Test Item Value Reference Range Interpretation Comments URINE CULTURE (test No aerobic growth (< code = 630-4) 1000 CFU/mL) [facility] CenterURINE [id number] 13:18:52 Test Item Value Reference Range Interpretation Comments URINE CULTURE (test No aerobic growth (< code = 630-4) 1000 CFU/mL) [facility] OR [facility] ONLY - [id number] 09:18:10 Test Item Value Reference Range Interpretation Comments RPR (Qualitative) (test code = Nonreactive Nonreactive 45877-0) Lab Interpretation (test code = Normal 10524-8) [facility] OR KATHRYN ONLY - [id number] 09:18:10 Test Item Value Reference Range Interpretation Comments RPR (Qualitative) (test code = Nonreactive Nonreactive 35799-4) Lab Interpretation (test code = Normal 95766-1) [facility] CenterHEPATITIS B SURFACE [id number] 02:10:23 Test Item Value Reference Range Interpretation Comments HBsAg Semi-Quantitative (test code = Negative Negative 5195-3) [facility] CenterHEPATITIS B SURFACE [id number] 02:10:23 Test Item Value Reference Range Interpretation Comments HBsAg Semi-Quantitative (test code = Negative Negative 5195-3) [facility] CELL [id number] 22:42:49 Test Item Value Reference Range Interpretation Comments SICKLE SCR (test code = 2468135150) Negative Negative Lab Interpretation (test code = Normal 98721-4) [facility] CELL [id number] 22:42:49 Test Item Value Reference Range Interpretation Comments SICKLE SCR (test code = 9938299556) Negative Negative Lab Interpretation (test code = Normal 86072-8) [facility] CenterHCV [id number] 22:37:35 Test Item Value Reference Range Interpretation Comments HCV Ab (test code = 26100-7) Negative HCV Semi-Quantitative (test code = 78348-5) [facility] CenterHCV [id number] 22:37:35 Test Item Value Reference Range Interpretation Comments HCV Ab (test code = 93836-9) Negative HCV Semi-Quantitative (test code = 42576-0) [facility] WITH [id number] 17:36:27 Test Item Value Reference Range Interpretation Comments HIV Negative Negative Semi-quantitative (test code = 94243-4) DAIN (test code = Non-reactive for HIV-1 DAIN) antigen and HIV-1/HIV-2 antibodies. ?No laboratory evidence of HIV infection. ?Repeat in 2-4 weeks if acute HIV infection is suspected. [facility] CenterHIV [facility]/2 AG-AB WITH [id number] 17:36:27 Test Item Value Reference Range Interpretation Comments HIV Negative Negative Semi-quantitative (test code = 22154-8) DAIN (test code = Non-reactive for HIV-1 DAIN) antigen and HIV-1/HIV-2 antibodies. ?No laboratory evidence of HIV infection. ?Repeat in 2-4 weeks if acute HIV infection is suspected. [facility] WITH [id number] 17:36:27 Test Item Value Reference Range Interpretation Comments HIV Negative Negative Semi-quantitative (test code = 42943-2) DAIN (test code = Non-reactive for HIV-1 DAIN) antigen and HIV-1/HIV-2 antibodies. ?No laboratory evidence of HIV infection. ?Repeat in 2-4 weeks if acute HIV infection is suspected. [facility] WORKUP, BLOOD [id number] 17:12:48 Test Item Value Reference Range Interpretation Comments ABO & RH (test code B Positive Performe d at [facility] = 20) Laboratory [facility] Blood Bank[address] [place], [place] [address]Toll Free: [phone] A No. [id number] IAT (test code = Negative Performed a t [facility] 1185) Laboratory [facility] Blood [place] [address]Toll Free: [phone] A No. [id number] [facility] WORKUP, BLOOD [id number] 17:12:48 Test Item Value Reference Range Interpretation Comments ABO & RH (test code B Positive Performe d at [facility] = 20) Laboratory [facility] [place] [address] [address]Toll Free: [phone] A No. [id number] IAT (test code = Negative Performed a t [facility] 1185) Laboratory [facility] Blood Bank[address] [place], [place] [address]Toll Free: [phone] A No. [id number] [facility]OD [id number] 17:12:48 Test Item Value Reference Range Interpretation Comments ABO & RH (test code B Positive Performe d at [facility] = 20) Laboratory [facility] [place], [place] [address]Toll Free: [phone] A No. [id number] IAT (test code = Negative Performed a t [facility] 1185) Laboratory [facility] [address] [place], [place] [address]Toll Free: [phone] A No. [id number] [facility] DRUG (IMMUNOASSAY) - COMPREHENSIVE DRUG [id number] 16:42:31 Test Item Value Reference Range Interpretation Comments AMPHET (test code = Negative Negative 1868774633) AKSHAT U (test code = Negative Negative 5123625093) BENZO U (test code = Negative Negative 5930790017) Cocaine Metabolite (test Negative Negative code = 0776769688) METHADONE (test code = Negative Negative 9466110336) OPIATES (test code = Negative Negative 0304844267) PCP (test code = Negative Negative 8060886358) THC (test code = Negative Negative 3928407096) DAIN (test code = DAIN) Urine Drug [...] testing). Lab Interpretation (test Normal code = 77843-7) [facility] DRUG (IMMUNOASSAY) - COMPREHENSIVE DRUG [id number] 16:42:31 Test Item Value Reference Range Interpretation Comments AMPHET (test code = Negative Negative 9569437865) AKSHAT U (test code = Negative Negative 2766437595) BENZO U (test code = Negative Negative 8108950317) Cocaine Metabolite (test Negative Negative code = 2140653159) METHADONE (test code = Negative Negative 6012399247) OPIATES (test code = Negative Negative 7470842832) PCP (test code = Negative Negative 0845721055) THC (test code = Negative Negative 2591143786) DAIN (test code = DAIN) Urine Drug [...] testing). Lab Interpretation (test Normal code = 89053-4) [facility] (IMMUNOASSAY) - COMPREHENSIVE DRUG [id number] 16:42:31 Test Item Value Reference Range Interpretation Comments AMPHET (test code = Negative Negative 2029011238) AKSHAT U (test code = Negative Negative 8806637912) BENZO U (test code = Negative Negative 4792884953) Cocaine Metabolite (test Negative Negative code = 2408798764) METHADONE (test code = Negative Negative 2390437086) OPIATES (test code = Negative Negative 7102790180) PCP (test code = Negative Negative 8525687063) THC (test code = Negative Negative 5859600958) DAIN (test code = DAIN) Urine Drug [...] testing). Lab Interpretation (test Normal code = 85020-4) [facility] CenterCB WITH [id number] 15:54:37 Test Item Value Reference Range Interpretation Comments WBC (test code = See_Comment [Automated 8583-2) message] The sy stem which generated this result transmitted reference range : 4.30 - 11.10 10*3/?L. The reference range was not used to interpret this result as normal/abnormal . RBC (test code = See_Comment L [Automated 576-8) message] The sy stem which generated this [...] RDW-SD (test code = 41.2 fL 39.0-49.9 16001-8) RDW-CV (test code = 12.5 % 12.0-15.5 788-0) PLT (test code = See_Comment [Automated 777-3) message] The sy stem which generated this result transmitted reference range : 166 - 358 10*3/ ?L. The reference r deanna was not used to interpret this result as normal/abnormal . MPV (test code = 9.2 fL 9.5-12.9 L 09489-4) NRBC/100 WBC (test See_Comment [Automat ed code = 8219364939) message] The system which generated this result transmitted reference range : 0.0 - 10.0 /100 WBCs. The refer ence range was not u sed to interpret th is result as normal/abnormal . NRBC x10^3 (test code See_Comment [Auto mated = 2872961516) message] The s ystem which generated this result transmitted reference range : 10*3/?L. The reference range was not used to interpret this result as normal/abnormal . GRAN MAT (NEUT) % 76.9 % (test code = 770-8) IMM GRAN % (test code 0.30 % = 7837503072) LYMPH % (test code = 15.2 % 736-9) MONO % (test code = 7.1 % 5905-5) EOS % (test code = 0.2 % 713-8) BASO % (test code = 0.3 % 706-2) GRAN MAT x10^3(ANC) 4.76 10*3/uL 1.88-7.09 (test code = 8603583169) IMM GRAN x10^3 (test 0.00-0.06 code = 8027289037) LYMPH x10^3 (test code 0.94 10*3/uL 1.32-3.29 L = 731-0) MONO x10^3 (test code 0.44 10*3/uL 0.33-0.92 = 742-7) EOS x10^3 (test code = 0.03-0.39 L 711-2) BASO x10^3 (test code 0.01-0.07 = 704-7) Lab Interpretation Abnormal (test code = 33544-9) [facility] WITH [id number] 15:54:37 Test Item Value Reference Range Interpretation Comments WBC (test code = See_Comment [Automated 6090-2) message] The sy stem which generated this result transmitted reference range : 4.30 - 11.10 10*3/?L. The reference range was not used to interpret this result as normal/abnormal . RBC (test code = See_Comment L [Automated 509-8) message] The sy stem which generated this [...] RDW-SD (test code = 41.2 fL 39.0-49.9 38120-5) RDW-CV (test code = 12.5 % 12.0-15.5 788-0) PLT (test code = See_Comment [Automated 777-3) message] The sy stem which generated this result transmitted reference range : 166 - 358 10*3/ ?L. The reference r deanna was not used to interpret this result as normal/abnormal . MPV (test code = 9.2 fL 9.5-12.9 L 77591-3) NRBC/100 WBC (test See_Comment [Automat ed code = 3756381194) message] The system which generated this result transmitted reference range : 0.0 - 10.0 /100 WBCs. The refer ence range was not u sed to interpret th is result as normal/abnormal . NRBC x10^3 (test code See_Comment [Auto mated = 5637453978) message] The s ystem which generated this result transmitted reference range : 10*3/?L. The reference range was not used to interpret this result as normal/abnormal . GRAN MAT (NEUT) % 76.9 % (test code = 770-8) IMM GRAN % (test code 0.30 % = 2535764303) LYMPH % (test code = 15.2 % 736-9) MONO % (test code = 7.1 % 5905-5) EOS % (test code = 0.2 % 713-8) BASO % (test code = 0.3 % 706-2) GRAN MAT x10^3(ANC) 4.76 10*3/uL 1.88-7.09 (test code = 3323404695) IMM GRAN x10^3 (test 0.00-0.06 code = 9497225052) LYMPH x10^3 (test code 0.94 10*3/uL 1.32-3.29 L = 731-0) MONO x10^3 (test code 0.44 10*3/uL 0.33-0.92 = 742-7) EOS x10^3 (test code = 0.03-0.39 L 711-2) BASO x10^3 (test code 0.01-0.07 = 704-7) Lab Interpretation Abnormal (test code = 81523-8) [facility] WITH [id number] 15:54:37 Test Item Value Reference Range Interpretation [...] RDW-SD (test code = 41.2 fL 39.0-49.9 12580-7) RDW-CV (test code = 12.5 % 12.0-15.5 788-0) PLT (test code = See_Comment [Automated 777-3) message] The sy stem which generated this result transmitted reference range : 166 - 358 10*3/ ?L. The reference r deanna was not used to interpret this result as normal/abnormal . MPV (test code = 9.2 fL 9.5-12.9 L 97194-1) NRBC/100 WBC (test See_Comment [Automat ed code = 0252627078) message] The system which generated this result transmitted reference range : 0.0 - 10.0 /100 WBCs. The refer ence range was not u sed to interpret th is result as normal/abnormal . NRBC x10^3 (test code See_Comment [Auto mated = 6409476388) message] The s ystem which generated this result transmitted reference range : 10*3/?L. The reference range was not used to interpret this result as normal/abnormal . GRAN MAT (NEUT) % 76.9 % (test code = 770-8) IMM GRAN % (test code 0.30 % = 9520242643) LYMPH % (test code = 15.2 % 736-9) MONO % (test code = 7.1 % 5905-5) EOS % (test code = 0.2 % 713-8) BASO % (test code = 0.3 % 706-2) GRAN MAT x10^3(ANC) 4.76 10*3/uL 1.88-7.09 (test code = 7735559917) IMM GRAN x10^3 (test 0.00-0.06 code = 2249749499) LYMPH x10^3 (test code 0.94 10*3/uL 1.32-3.29 L = 731-0) MONO x10^3 (test code 0.44 10*3/uL 0.33-0.92 = 742-7) EOS x10^3 (test code = 0.03-0.39 L 711-2) BASO x10^3 (test code 0.01-0.07 = 704-7) Lab Interpretation Abnormal (test code = 77317-3) [facility] [id number] 20:51:00 Test Item Value Reference Range Interpretation Comments POCT PREG (test code = 1605) Positive On board controls acceptable with C Yes Line (test code = 3574) POCT PREG LOT # (test code = 3575) POCT PREG TEST DATE (test code = 3576) [facility]
--- NOTE | 2022-08-24 09:03 | ER ---
Nurse's Notes [facility] Name: Marimar Eid Age: 32 yrs Sex: Female : 1990 Arrival Date: 08/24/2022 Time: 08:26 Bed IW1 Private MD: Diagnosis: Dental Pain Presentation: 08/24 08:35 Chief complaint: Patient states: she has a wisdom tooth on her right upper jaw that has ap3 been giving her a lot of pain this morning, and it broke this morning. patient reports pain as 10/10. Coronavirus screen: At this time, the client does not indicate any symptoms associated with coronavirus-19. Ebola Screen: No symptoms or risks identified at this time. Initial Sepsis Screen: Does the patient meet any 2 criteria? No. Patient's initial sepsis screen is negative. Does the patient have a suspected source of infection? No. Patient's initial sepsis screen is negative. Risk Assessment: Do you want to hurt yourself or someone else? Patient reports no desire to harm self or others. Onset of symptoms was August 24, 2022. 08:35 Method Of Arrival: Ambulatory ap3 08:35 Acuity: RAMIRO 4 ap3 Triage Assessment: 08:37 General: Appears uncomfortable, Behavior is calm, cooperative. Pain: Complains of pain ap3 in right buccal mucosa Pain currently is 10 out of 10 on a pain scale. EENT: Reports pain in right buccal mucosa. Neuro: Level of Consciousness is awake, alert, obeys commands, Oriented to person, place, time, situation, Speech is normal. Cardiovascular: Patient's skin is warm and dry. Respiratory: Airway is patent Respiratory effort is even, unlabored. 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 - Social history:: Smoking status: Patient/guardian denies using tobacco. Screenin:38 [facility] ED Fall Risk Assessment (Adult) History of falling in the last 3 months, ap3 including since admission No falls in past 3 months (0 pts). Abuse screen: Denies threats or abuse. Nutritional screening: No deficits noted. Tuberculosis screening: No symptoms or risk factors identified. Vital Signs: 08:35 BP 134 / 92; Pulse 106; Resp 18; Temp 98.2; Pulse Ox 99% ; Weight 80.74 kg; Height 5 ap3 ft. 1 in. (154.94 cm); Pain 10/10; 08:35 Body Mass Index 33.63 (80.74 kg, 154.94 cm) ap3 ED Course: 08:26 Patient arrived in ED. am2 08:29 Dave Vargas PA is PHCP. jmm 08:29 Mert Gutierrez DO is Attending Physician. [facility] 08:35 Tiffanie Harrington, RN is Primary Nurse. ap3 08:37 Triage completed. ap3 08:38 Arm band placed on right wrist. ap3 08:39 Attending Physician role handed off by Mert Gutierrez DO sp4 08:39 Reece Bradshaw MD is Attending Physician. sp4 08:39 Patient has correct armband on for positive identification. Pulse ox on. NIBP on. ap3 08:39 No provider procedures requiring assistance completed. ap3 08:39 Patient did not have IV access during this emergency room visit. ap3 09:02 Kaiden Peterson DDS is Referral Physician. grabiel Administered Medications: No medications were administered Medication: 08:38 VIS not applicable for this client. ap3 Outcome: 09:03 Discharge ordered by . [facility] 09:43 Discharged to home ambulatory. ap3 09:43 Condition: good 09:43 Discharge instructions given to patient, Instructed on discharge instructions, follow up and referral plans. medication usage, Demonstrated understanding of instructions, follow-up care, medications, Prescriptions given X 3. 09:44 Patient left the ED. ap3 Signatures: Dave Vargas PA PA jmm Moreno, Amanda am2 Tiffanie Harrington, RN RN ap3 Reece Bradshaw MD MD sp4 Corrections: (The following items were deleted from the chart) 08:37 08:37 Home Meds: None; ap3 ap3
--- NOTE | 2022-08-24 09:03 | EDPHYS ---
Physician Documentation [facility] Name: Marimar Eid Age: 32 yrs Sex: Female : 1990 Arrival Date: 08/24/2022 Time: 08:26 Bed IW1 Private MD: ED Physician Reece Bradshaw HPI: 08/24 08:43 This 32 yrs old Black Female presents to ER via Ambulatory with complaints of Toothache.jmm 08:43 The patient presents with pain. Onset: The symptoms/episode began/occurred gradually, jmm this morning. Modifying factors: The symptoms are alleviated by nothing, the symptoms are aggravated by nothing. Associated signs and symptoms: Pertinent negatives: fever. This is a 32 year old female with a history of htn that presents to the ED with complaints of right upper molar pain. . STONER HAND: 08:38 LMP 02/28/2022 ap3 Historical: - Allergies: 08:37 No Known Allergies; ap3 - Home Meds: 08:37 Vitamin Oral [Active]; ap3 - PMHx: 08:37 Hypertensive disorder; ap3 - Immunization history:: Client reports having NOT received the Covid vaccine. - Social history:: Smoking status: Patient/guardian denies using tobacco. ROS: 08:56 Constitutional: Negative for fever, chills, and weight loss, Cardiovascular: Negative jmm for chest pain, palpitations, and edema, Respiratory: Negative for shortness of breath, cough, wheezing, and pleuritic chest pain. 08:56 ENT: Positive for dental pain. 08:56 All other systems are negative. Exam: 08:56 Constitutional: This is a well developed, well nourished patient who is awake, alert, jmm and in no acute distress. Head/Face: atraumatic. Eyes: EOMI, no conjunctival erythema appreciated 08:56 Neck: Trachea midline, Supple Chest/axilla: Normal chest wall appearance and motion. Cardiovascular: Regular rate and rhythm. No edema appreciated Respiratory: Normal respirations, no respiratory distress appreciated Abdomen/GI: Non distended Back: Normal ROM Skin: General appearance color normal MS/ Extremity: Moves all extremities, no obvious deformities appreciated, no edema noted to the lower extremities Neuro: Awake and alert Psych: Behavior is normal, Mood is normal, Patient is cooperative and pleasant 08:56 ENT: Dental exam: missing teeth, specifically the upper right third molar (#1), no periapical swelling, mass appreciated. Vital Signs: 08:35 BP 134 / 92; Pulse 106; Resp 18; Temp 98.2; Pulse Ox 99% ; Weight 80.74 kg; Height 5 ap3 ft. 1 in. (154.94 cm); Pain 10/10; 08:35 Body Mass Index 33.63 (80.74 kg, 154.94 cm) ap3 MDM: 08:40 Patient medically screened. [facility] 08:58 Data reviewed: vital signs, nurses notes. I considered the following discharge jmm prescriptions or medication management in the emergency department Medications were administered in the Emergency Department. See MAR. Counseling: I had a detailed discussion with the patient and/or guardian regarding: the historical points, exam findings, and any diagnostic results supporting the discharge/admit diagnosis, the need for outpatient follow up, to return to the emergency department if symptoms worsen or persist or if there are any questions or concerns that arise at home. ED course: Patient is alert and non toxic in appearance in the ED. I do not suspect periapical abscess. Patient is advised to follow up dentist. Patient is otherwise given strict return precautions. patient understood and agrees with the plan of care. . 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 No recent opioid prescriptions . [facility] Administered Medications: No medications were administered Disposition: 09:57 Co-signature as Attending Physician, Mert Gutierrez DO I was immediately available on-site ms3 in the Emergency Department for consultation in the care of the patient. Disposition Summary: 08/24/22 09:03 Discharge Ordered Location: Home [facility] Condition: Stable [facility] Diagnosis - Dental Pain [facility] Followup: [facility] - With: Kaiden Peterson DDS - When: 2 - 3 days - Reason: Recheck today's complaints, Continuance of care, Re-evaluation by your physician Discharge Instructions: - Discharge Summary Sheet [facility] - Dental Pain [facility] Forms: - Medication Reconciliation Form [facility] - Thank You Letter [facility] - Antibiotic Education [facility] - Prescription Opioid Use [facility] Prescriptions: - Peridex 0.12 % Mucous Membrane mouthwash - place 15 milliliter by MUCOUS MEMBRANE route 2 times per day after brushing jmm teeth, swish in mouth for 30 seconds then spit out; 1 bottle; Refills: 0, Product Selection Permitted - Amoxicillin 875 mg Oral Tablet - take 1 tablet by ORAL route every 12 hours for 10 days; 20 tablet; Refills: 0, [facility] Product Selection Permitted - Tramadol 50 mg Oral Tablet - take 1 tablet by ORAL route every 8 hours as needed; 6 tablet; Refills: 0, [facility] Product Selection Permitted Signatures: Dave Vargas PA PA jmm Prokisch, Amanda, RN RN ap3 Mert Gutierrez DO DO ms3 Corrections: (The following items were deleted from the chart) 08:37 08:37 Home Meds: None; ap3 ap3
[2022-08-24 09:50] VITALS: BP 134/92; TEMP 98.2; O2SAT 99
== END 2022-08-24 09:44 | disposition home or self-care (01) ==
LOC: ER 08:24
DX: K08.89 Other specified disorders of teeth and supporting structures (principal); I10 Essential (primary) hypertension
CPT/HCPCS: 99283